=== PATIENT | female | born 1930 | race Caucasian/White ===

== ENCOUNTER 2020-04-15 15:54 | Inpatient (IN) ==
[2020-04-15] MEDS ORDERED: D5% in Water 1,000 ML IVC PRN (17:52)
[2020-04-15] MEDS ORDERED: *HR* Dextrose 50 % in Water (Vial) 50 ML VIAL IVP PRN (17:52)
[2020-04-15] MEDS ORDERED: Naloxone 0.4 MG/ML INJ IVP PRN (17:52)
[2020-04-15] MEDS ORDERED: Dextrose Gel 15 GM/37.5 ML TUBE PO PRN ×2 (17:52)
[2020-04-15] MEDS ORDERED: Perflutren Lipid Microsphere 1.3 ML in 0.9 % Sodium Chloride 8.7 ML IVP PRN (17:55)
[2020-04-15] MEDS ORDERED: Nitroglycerin 0.4 MG TAB.SUBL SL PRN (17:56)
[2020-04-15] MEDS ORDERED: cloNIDine HCL 0.1 MG TABLET PO ONE (18:07)
[2020-04-15] MEDS ORDERED: Furosemide 40 MG/4 ML VIAL IVP ONE (18:10)
[2020-04-15] MEDS ORDERED: cloNIDine HCL 0.1 MG TABLET ONE (18:21)
[2020-04-15] MEDS: *HR* Heparin 5,000 UNIT/ML VIAL SQ SCH (18:50)
[2020-04-16] MEDS: *HR* OxyCODONE/APAP 5/325 TABLET PO SCH ×4 (00:38→20:47)
[2020-04-16] MEDS ORDERED: GI Cocktail 40 ML EACH PO ONE ×2 (03:36→16:42)
[2020-04-16] MEDS ORDERED: *HR* LORazepam 1 MG TABLET PO ONE (03:36)
[2020-04-16 04:22] LABS: Basophils # 0.1 K/mcL (0.0-0.2); Basophils % 0.8 %; Eosinophils # 0.1 K/mcL (0.0-0.6); Eosinophils % 0.9 %; Hematocrit 35.2 % (35.3-44.9); Hemoglobin 11.3 g/dL (11.5-15.4); Immature Granulocytes % 0.3 % (0-4); Lymphocytes # 1.8 K/mcL (0.6-4.6); Lymphocytes % 19.3 %; Mean Corpuscular HGB Conc 32.1 g/dL (31.6-35.5); Mean Corpuscular Hemoglobin 29.9 pg (28.0-33.3); Mean Corpuscular Volume 93.1 fL (83.0-100.0); Mean Platelet Volume 9.7 fL (9.4-12.4); Monocytes # 0.8 K/mcL (0.0-1.3); Monocytes % 8.3 %; Neutrophils # 6.5 K/mcL (1.6-8.9); Platelet Count 371 K/mcL (140-400); Red Blood Count 3.78 M/mcL (3.82-4.97); Red Cell Distribution Width 15.6 % (11.5-14.5); Segmented Neutrophils % 70.4 %; White Blood Count 9.2 K/mcL (4.3-11.1)
[2020-04-16 04:33] LABS: Calcium 9.6 mg/dL (8.6-10.3); Magnesium 1.8 mg/dL (1.6-2.6); Potassium 3.6 mEq/L (3.5-5.1)
[2020-04-16] MEDS: *HR* Heparin 5,000 UNIT/ML VIAL SQ SCH ×2 (05:11→16:28)
[2020-04-16] MEDS: Insulin LISPRO 300 UNITS/3 ML VIAL SUBQ SCH ×3 (07:13→16:25)
[2020-04-16 07:59] LABS: Hepatitis B Surface Antibody < 3.10 mIU/mL
[2020-04-16 08:10] LABS: Hepatitis B Surface Antigen Nonreactive (Nonreactive)
[2020-04-16] MEDS: Isosorbide MONOnitrate (24 HR) 30 MG TAB.ER.24H PO SCH (14:28)
[2020-04-16] MEDS: amLODIPine 5 MG TABLET PO SCH (14:28)
[2020-04-16] MEDS: hydrALAZINE 25 MG TABLET PO SCH (16:27)
[2020-04-16] MEDS: Aspirin 81 MG TAB.CHEW PO SCH (17:23)
[2020-04-16] MEDS: Ondansetron 4 MG/2 ML VIAL IVP PRN (20:46)
[2020-04-16] MEDS: carvediloL 6.25 MG TABLET PO SCH (20:47)
[2020-04-16] MEDS: traZODone 50 MG TABLET PO PRN (20:47)
[2020-04-16] MEDS: cloNIDine HCL 0.1 MG TABLET PO SCH (20:47)
[2020-04-17] MEDS: hydrALAZINE 25 MG TABLET PO SCH ×3 (00:23→15:33)
[2020-04-17 01:04] LABS: Bilirubin,Urine Negative (Negative); Blood,Urine Negative (Negative); Clarity,Urine Clear (Clear); Color,Urine Yellow (Yellow); Glucose,Urine (UA) Normal (Normal); Ketones,Urine Negative (Negative); Leukocyte Esterase,Urine Negative (Negative); Mucus,Urine Few per lpf (None-Few); Nitrite,Urine Negative (Negative); Protein,Urine 200 mg/dL (Neg-Trace); RBC,Urine 0-3 per hpf (0-3); Specific Gravity,Urine 1.018 (1.010-1.025); Urobilinogen,Urine Normal (Normal)
[2020-04-17] MEDS: *HR* Heparin 5,000 UNIT/ML VIAL SQ SCH ×2 (07:03→17:29)
[2020-04-17 07:49] LABS: Calcium 8.7 mg/dL (8.6-10.3); Potassium 4.1 mEq/L (3.5-5.1)
[2020-04-17] MEDS ORDERED: 0.9 % Sodium Chloride 250 ML IVC PRN (08:03)
[2020-04-17] MEDS ORDERED: *HR* Heparin 10,000 UNIT/10 ML VIAL IV PRN ×2 (08:03)
[2020-04-17] MEDS ORDERED: 0.9 % Sodium Chloride 1,000 ML PRIME SCH (08:15)
[2020-04-17] MEDS: cloNIDine HCL 0.1 MG TABLET PO SCH ×2 (08:19→21:15)
[2020-04-17] MEDS: carvediloL 6.25 MG TABLET PO SCH ×2 (08:19→17:30)
[2020-04-17] MEDS: Insulin LISPRO 300 UNITS/3 ML VIAL SUBQ SCH ×3 (08:19→17:11)
[2020-04-17] MEDS: amLODIPine 5 MG TABLET PO SCH (08:19)
[2020-04-17] MEDS: Isosorbide MONOnitrate (24 HR) 30 MG TAB.ER.24H PO SCH (08:20)
[2020-04-17] MEDS: *HR* OxyCODONE/APAP 5/325 TABLET PO SCH ×3 (08:20→21:15)
[2020-04-17] MEDS: Aspirin 81 MG TAB.CHEW PO SCH (08:24)
[2020-04-17 14:58] LABS: Adenovirus Not Detected (Not Detect); Bordetella Pertussis Not Detected (Not Detect); Chlamydophila pneumoniae Not Detected (Not Detect); Coronavirus 229E Not Detected (Not Detect); Coronavirus HKU1 Not Detected (Not Detect); Coronavirus NL63 Not Detected (Not Detect); Coronavirus OC43 Not Detected (Not Detect); Human Metapneumovirus Not Detected (Not Detect); Human Rhinovirus/Enterovirus Not Detected (Not Detect); Influenza A Subtype 2009 H1 Not Detected (Not Detect); Influenza B Not Detected (Not Detect); Mycoplasma pneumoniae Not Detected (Not Detect); Parainfluenza Virus 1 Not Detected (Not Detect); Parainfluenza Virus 2 Not Detected (Not Detect); Parainfluenza Virus 3 Not Detected (Not Detect); Parainfluenza Virus 4 Not Detected (Not Detect); Respiratory Syncytial Virus Not Detected (Not Detect); SARS-CoV-2 Not Detected (Not Detect)
[2020-04-18] MEDS: hydrALAZINE 25 MG TABLET PO SCH ×4 (01:41→17:55)
[2020-04-18 05:17] LABS: Basophils # 0.1 K/mcL (0.0-0.2); Basophils % 1.1 %; Eosinophils # 0.2 K/mcL (0.0-0.6); Eosinophils % 4.2 %; Hematocrit 30.8 % (35.3-44.9); Immature Granulocytes % 0.4 % (0-4); Lymphocytes # 1.7 K/mcL (0.6-4.6); Lymphocytes % 31.6 %; Mean Corpuscular HGB Conc 31.5 g/dL (31.6-35.5); Mean Corpuscular Hemoglobin 30.6 pg (28.0-33.3); Mean Corpuscular Volume 97.2 fL (83.0-100.0); Mean Platelet Volume 9.7 fL (9.4-12.4); Monocytes # 0.7 K/mcL (0.0-1.3); Monocytes % 13.4 %; Neutrophils # 2.7 K/mcL (1.6-8.9); Platelet Count 246 K/mcL (140-400); Red Blood Count 3.17 M/mcL (3.82-4.97); Red Cell Distribution Width 15.9 % (11.5-14.5); Segmented Neutrophils % 49.3 %; White Blood Count 5.5 K/mcL (4.3-11.1)
[2020-04-18 05:50] LABS: Calcium 8.7 mg/dL (8.6-10.3); Potassium 4.1 mEq/L (3.5-5.1)
[2020-04-18 06:00] LABS: Hemoglobin 9.7 g/dL (11.5-15.4)
[2020-04-18] MEDS: *HR* Heparin 5,000 UNIT/ML VIAL SQ SCH (06:07)
[2020-04-18] MEDS: Insulin LISPRO 300 UNITS/3 ML VIAL SUBQ SCH ×3 (07:07→17:22)
[2020-04-18] MEDS: amLODIPine 5 MG TABLET PO SCH (08:13)
[2020-04-18] MEDS: Aspirin 81 MG TAB.CHEW PO SCH (08:13)
[2020-04-18] MEDS: Isosorbide MONOnitrate (24 HR) 30 MG TAB.ER.24H PO SCH (08:13)
[2020-04-18] MEDS: cloNIDine HCL 0.1 MG TABLET PO SCH ×2 (08:14→21:17)
[2020-04-18] MEDS: *HR* OxyCODONE/APAP 5/325 TABLET PO SCH ×3 (08:15→21:17)
[2020-04-18] MEDS: carvediloL 6.25 MG TABLET PO SCH ×2 (08:15→18:02)
[2020-04-18] MEDS: traZODone 50 MG TABLET PO PRN (21:17)
[2020-04-19] MEDS: hydrALAZINE 25 MG TABLET PO SCH ×3 (01:27→15:25)
[2020-04-19] MEDS: hydrOXYzine pamoate 25 MG CAPSULE PO PRN (01:28)
[2020-04-19 02:13] LABS: Basophils # 0.1 K/mcL (0.0-0.2); Eosinophils # 0.3 K/mcL (0.0-0.6); Hematocrit 34.5 % (35.3-44.9); Hemoglobin 10.8 g/dL (11.5-15.4); Immature Granulocytes % 0.1 % (0-4); Lymphocytes # 1.8 K/mcL (0.6-4.6); Lymphocytes % 25.3 %; Mean Corpuscular HGB Conc 31.3 g/dL (31.6-35.5); Mean Corpuscular Hemoglobin 30.2 pg (28.0-33.3); Mean Corpuscular Volume 96.4 fL (83.0-100.0); Mean Platelet Volume 9.5 fL (9.4-12.4); Monocytes # 0.8 K/mcL (0.0-1.3); Platelet Count 290 K/mcL (140-400); Red Blood Count 3.58 M/mcL (3.82-4.97); Red Cell Distribution Width 15.6 % (11.5-14.5); Segmented Neutrophils % 57.6 %; White Blood Count 6.9 K/mcL (4.3-11.1)
[2020-04-19 02:28] LABS: Calcium 9.1 mg/dL (8.6-10.3); Potassium 4.1 mEq/L (3.5-5.1)
[2020-04-19] MEDS: Insulin LISPRO 300 UNITS/3 ML VIAL SUBQ SCH ×3 (07:30→17:34)
[2020-04-19] MEDS: Aspirin 81 MG TAB.CHEW PO SCH (07:57)
[2020-04-19] MEDS: cloNIDine HCL 0.1 MG TABLET PO SCH ×2 (07:57→21:27)
[2020-04-19] MEDS: amLODIPine 5 MG TABLET PO SCH (07:57)
[2020-04-19] MEDS: carvediloL 6.25 MG TABLET PO SCH ×2 (07:57→15:26)
[2020-04-19] MEDS: Isosorbide MONOnitrate (24 HR) 30 MG TAB.ER.24H PO SCH (07:58)
[2020-04-19] MEDS: *HR* OxyCODONE/APAP 5/325 TABLET PO SCH ×3 (07:58→21:27)
[2020-04-19] MEDS ORDERED: *HR* Heparin 10,000 UNIT/10 ML VIAL IV PRN (08:02)
[2020-04-19] MEDS ORDERED: 0.9 % Sodium Chloride 250 ML IVC PRN (08:02)
[2020-04-19] MEDS ORDERED: *HR* Metoprolol 5 MG/5 ML VIAL IVP ONE (09:20)
[2020-04-19] MEDS ORDERED: *HR* Propofol 200 MG/20 ML VIAL IVP ONE (09:21)
[2020-04-19] MEDS ORDERED: *HR* PHENYLEPHRINE 1,000 MCG/10 ML SYRINGE IVP ONE (10:33)
[2020-04-19] MEDS: Pantoprazole 40 MG VIAL IVP SCH (12:11)
[2020-04-19] MEDS: Acetaminophen 325 MG TABLET PO PRN (19:32)
[2020-04-19] MEDS ORDERED: Famotidine 20 MG TABLET PO SCH (21:00)
[2020-04-19] MEDS: traZODone 50 MG TABLET PO PRN (21:27)
[2020-04-20] MEDS: hydrALAZINE 25 MG TABLET PO SCH ×3 (00:10→15:21)
[2020-04-20] MEDS: Acetaminophen 325 MG TABLET PO PRN ×2 (01:54→12:33)
[2020-04-20] MEDS: Ondansetron 4 MG/2 ML VIAL IVP PRN (04:14)
[2020-04-20] MEDS: Pantoprazole 40 MG VIAL IVP SCH (08:14)
[2020-04-20] MEDS: Aspirin 81 MG TAB.CHEW PO SCH (08:14)
[2020-04-20] MEDS: Isosorbide MONOnitrate (24 HR) 30 MG TAB.ER.24H PO SCH (08:14)
[2020-04-20] MEDS: polyethylene glycoL 3350 17 GM POWD.PACK PO PRN (08:14)
[2020-04-20] MEDS: carvediloL 6.25 MG TABLET PO SCH ×2 (08:14→17:37)
[2020-04-20] MEDS: cloNIDine HCL 0.1 MG TABLET PO SCH ×2 (08:15→20:59)
[2020-04-20] MEDS: *HR* OxyCODONE/APAP 5/325 TABLET PO SCH ×3 (08:15→20:59)
[2020-04-20] MEDS: Insulin LISPRO 300 UNITS/3 ML VIAL SUBQ SCH ×3 (08:15→16:07)
[2020-04-20] MEDS: amLODIPine 5 MG TABLET PO SCH (08:22)
[2020-04-20 08:25] LABS: Basophils # 0.1 K/mcL (0.0-0.2); Basophils % 0.9 %; Eosinophils # 0.1 K/mcL (0.0-0.6); Eosinophils % 2.1 %; Hematocrit 30.9 % (35.3-44.9); Hemoglobin 9.9 g/dL (11.5-15.4); Immature Granulocytes % 0.3 % (0-4); Lymphocytes # 1.4 K/mcL (0.6-4.6); Lymphocytes % 21.6 %; Mean Corpuscular Hemoglobin 30.7 pg (28.0-33.3); Mean Platelet Volume 9.9 fL (9.4-12.4); Monocytes # 0.7 K/mcL (0.0-1.3); Monocytes % 11.7 %; Platelet Count 233 K/mcL (140-400); Red Blood Count 3.22 M/mcL (3.82-4.97); Segmented Neutrophils % 63.4 %; White Blood Count 6.3 K/mcL (4.3-11.1)
[2020-04-20 08:42] LABS: Calcium 8.8 mg/dL (8.6-10.3); Potassium 4.1 mEq/L (3.5-5.1)
[2020-04-20] MEDS ORDERED: Bisacodyl 10 MG RECTAL SUPPOSITORY RC ONE (14:07)
[2020-04-20] MEDS ORDERED: GI Cocktail 40 ML EACH PO ONE (15:33)
[2020-04-21] MEDS: hydrALAZINE 25 MG TABLET PO SCH ×4 (00:21→23:36)
[2020-04-21 04:03] LABS: Basophils % 0.3 %; Eosinophils # 0.1 K/mcL (0.0-0.6); Eosinophils % 0.8 %; Hematocrit 31.3 % (35.3-44.9); Hemoglobin 10.1 g/dL (11.5-15.4); Immature Granulocytes % 0.5 % (0-4); Lymphocytes # 0.7 K/mcL (0.6-4.6); Lymphocytes % 5.7 %; Mean Corpuscular HGB Conc 32.3 g/dL (31.6-35.5); Mean Corpuscular Hemoglobin 31.1 pg (28.0-33.3); Mean Corpuscular Volume 96.3 fL (83.0-100.0); Mean Platelet Volume 9.7 fL (9.4-12.4); Monocytes # 0.9 K/mcL (0.0-1.3); Monocytes % 7.6 %; Neutrophils # 10.4 K/mcL (1.6-8.9); Platelet Count 223 K/mcL (140-400); Red Blood Count 3.25 M/mcL (3.82-4.97); Segmented Neutrophils % 85.1 %
[2020-04-21 04:04] LABS: White Blood Count 12.2 K/mcL (4.3-11.1)
[2020-04-21 04:21] LABS: Calcium 9.2 mg/dL (8.6-10.3); Potassium 4.2 mEq/L (3.5-5.1)
[2020-04-21] MEDS: polyethylene glycoL 3350 17 GM POWD.PACK PO PRN (05:35)
[2020-04-21] MEDS: Insulin LISPRO 300 UNITS/3 ML VIAL SUBQ SCH ×3 (07:20→16:53)
[2020-04-21] MEDS: Pantoprazole 40 MG VIAL IVP SCH (07:47)
[2020-04-21] MEDS: Isosorbide MONOnitrate (24 HR) 30 MG TAB.ER.24H PO SCH (07:48)
[2020-04-21] MEDS: amLODIPine 5 MG TABLET PO SCH (07:48)
[2020-04-21] MEDS: cloNIDine HCL 0.1 MG TABLET PO SCH ×2 (07:48→19:45)
[2020-04-21] MEDS: carvediloL 6.25 MG TABLET PO SCH ×2 (07:48→18:11)
[2020-04-21] MEDS: Aspirin 81 MG TAB.CHEW PO SCH (07:48)
[2020-04-21] MEDS: *HR* OxyCODONE/APAP 5/325 TABLET PO SCH ×3 (07:49→19:45)
[2020-04-21] MEDS ORDERED: Bisacodyl 10 MG RECTAL SUPPOSITORY RC PRN (11:01)
[2020-04-21] MEDS: Ondansetron 4 MG/2 ML VIAL IVP PRN (11:05)
[2020-04-21] MEDS ORDERED: Sennosides 8.6 MG TABLET PO SCH (11:15)
[2020-04-21] MEDS: Acetaminophen 325 MG TABLET PO PRN (18:11)
[2020-04-21] MEDS: traZODone 50 MG TABLET PO PRN (19:45)
[2020-04-22 02:40] LABS: Basophils # 0.1 K/mcL (0.0-0.2); Basophils % 0.7 %; Eosinophils # 0.4 K/mcL (0.0-0.6); Eosinophils % 4.7 %; Hematocrit 28.5 % (35.3-44.9); Hemoglobin 9.3 g/dL (11.5-15.4); Immature Granulocytes % 0.4 % (0-4); Lymphocytes # 1.4 K/mcL (0.6-4.6); Lymphocytes % 18.7 %; Mean Corpuscular HGB Conc 32.6 g/dL (31.6-35.5); Mean Corpuscular Hemoglobin 30.7 pg (28.0-33.3); Mean Corpuscular Volume 94.1 fL (83.0-100.0); Mean Platelet Volume 9.8 fL (9.4-12.4); Monocytes # 0.9 K/mcL (0.0-1.3); Monocytes % 12.2 %; Neutrophils # 4.7 K/mcL (1.6-8.9); Platelet Count 200 K/mcL (140-400); Red Blood Count 3.03 M/mcL (3.82-4.97); Red Cell Distribution Width 15.8 % (11.5-14.5); Segmented Neutrophils % 63.3 %; White Blood Count 7.5 K/mcL (4.3-11.1)
[2020-04-22 02:58] LABS: Calcium 8.6 mg/dL (8.6-10.3); Potassium 4.2 mEq/L (3.5-5.1)
[2020-04-22] MEDS: Insulin LISPRO 300 UNITS/3 ML VIAL SUBQ SCH ×3 (08:14→16:55)
[2020-04-22] MEDS ORDERED: Regadenoson 0.4 MG/5 ML SYRINGE IVP ONE (08:38)
[2020-04-22] MEDS ORDERED: 0.9 % Sodium Chloride 250 ML IVC PRN (09:28)
[2020-04-22] MEDS ORDERED: *HR* Heparin 10,000 UNIT/10 ML VIAL IV PRN (09:35)
[2020-04-22] MEDS ORDERED: 0.9 % Sodium Chloride 1,000 ML PRIME SCH (09:45)
[2020-04-22] MEDS: carvediloL 6.25 MG TABLET PO SCH ×2 (10:09→16:38)
[2020-04-22] MEDS: hydrALAZINE 25 MG TABLET PO SCH ×3 (10:09→23:32)
[2020-04-22] MEDS: cloNIDine HCL 0.1 MG TABLET PO SCH ×2 (10:10→20:03)
[2020-04-22] MEDS: amLODIPine 5 MG TABLET PO SCH (10:10)
[2020-04-22] MEDS: *HR* OxyCODONE/APAP 5/325 TABLET PO SCH ×3 (10:16→20:03)
[2020-04-22] MEDS: Isosorbide MONOnitrate (24 HR) 30 MG TAB.ER.24H PO SCH (10:17)
[2020-04-22] MEDS: Pantoprazole 40 MG VIAL IVP SCH (10:17)
[2020-04-22] MEDS: Aspirin 81 MG TAB.CHEW PO SCH (10:17)
[2020-04-22] MEDS ORDERED: Famotidine 20 MG TABLET PO SCH (21:00)
[2020-04-22] MEDS: traZODone 50 MG TABLET PO PRN (22:47)
[2020-04-23] MEDS: hydrOXYzine pamoate 25 MG CAPSULE PO PRN (00:22)
[2020-04-23] MEDS: Acetaminophen 325 MG TABLET PO PRN (03:08)
[2020-04-23] MEDS ORDERED: Melatonin 3 MG TABLET PO SCH (03:15)
[2020-04-23] MEDS: *HR* OxyCODONE/APAP 5/325 TABLET PO SCH ×2 (06:01→15:06)
[2020-04-23 06:52] LABS: Basophils % 0.5 %; Eosinophils # 0.2 K/mcL (0.0-0.6); Eosinophils % 2.3 %; Hematocrit 31.3 % (35.3-44.9); Hemoglobin 10.2 g/dL (11.5-15.4); Immature Granulocytes % 0.5 % (0-4); Lymphocytes # 0.8 K/mcL (0.6-4.6); Lymphocytes % 10.3 %; Mean Corpuscular HGB Conc 32.6 g/dL (31.6-35.5); Mean Corpuscular Hemoglobin 30.8 pg (28.0-33.3); Mean Corpuscular Volume 94.6 fL (83.0-100.0); Mean Platelet Volume 9.9 fL (9.4-12.4); Monocytes # 0.9 K/mcL (0.0-1.3); Monocytes % 11.9 %; Neutrophils # 5.9 K/mcL (1.6-8.9); Platelet Count 229 K/mcL (140-400); Red Blood Count 3.31 M/mcL (3.82-4.97); Segmented Neutrophils % 74.5 %; White Blood Count 7.9 K/mcL (4.3-11.1)
[2020-04-23 07:18] LABS: Potassium 3.8 mEq/L (3.5-5.1)
[2020-04-23] MEDS: Insulin LISPRO 300 UNITS/3 ML VIAL SUBQ SCH ×2 (08:27→12:08)
[2020-04-23] MEDS: cloNIDine HCL 0.1 MG TABLET PO SCH (08:35)
[2020-04-23] MEDS: carvediloL 6.25 MG TABLET PO SCH (08:35)
[2020-04-23] MEDS: Aspirin 81 MG TAB.CHEW PO SCH (08:35)
[2020-04-23] MEDS: hydrALAZINE 25 MG TABLET PO SCH (08:36)
[2020-04-23] MEDS: Isosorbide MONOnitrate (24 HR) 30 MG TAB.ER.24H PO SCH (08:36)
[2020-04-23] MEDS: amLODIPine 5 MG TABLET PO SCH (08:36)
[2020-04-23] MEDS: Pantoprazole 40 MG VIAL IVP SCH (08:38)
[2020-04-23 11:46] VITALS: BP 108/64
[2020-04-23] MEDS ORDERED: Acetaminophen IV 500 MG/50 ML BAG IVPB ONE (12:05)
== END 2020-04-23 16:12 | disposition home health service (06) | DRG 291 ==
LOC: 3BNU → SUATTDRO 17:45
PROVIDERS: ADMIT Internal Medicine; ATTEND Internal Medicine
PROC: ENDOEBX (2020-04-19 10:50)

== ENCOUNTER 2020-05-10 19:56 | Inpatient (IN) ==
[2020-05-10] MEDS ORDERED: Naloxone 0.4 MG/ML INJ IVP PRN (23:14)
[2020-05-10] MEDS ORDERED: Ringers Solution, Lactated 500 ML IVC SCH (23:15)
[2020-05-10] MEDS ORDERED: Isovue-370 500 ML BOTTLE IVP ONE (23:15)
[2020-05-10] MEDS ORDERED: Nitroglycerin 0.4 MG TAB.SUBL SL PRN (23:18)
[2020-05-11] MEDS ORDERED: Morphine Sulfate 2 MG/ML SYRINGE IVP ONE (00:47)
[2020-05-11] MEDS ORDERED: Albuterol 2.5 MG/3 ML NEBULIZER IH PRN (00:54)
[2020-05-11] MEDS ORDERED: *HR* Dextrose 50 % in Water (Vial) 50 ML VIAL IVP PRN (00:57)
[2020-05-11] MEDS ORDERED: Dextrose Gel 15 GM/37.5 ML TUBE PO PRN ×2 (00:57)
[2020-05-11] MEDS ORDERED: D5% in Water 1,000 ML IVC PRN (00:57)
[2020-05-11] MEDS ORDERED: *HR* Heparin 5,000 UNIT/ML VIAL IVP PRN ×2 (01:19)
[2020-05-11] MEDS ORDERED: *HR* Heparin 5,000 UNIT/ML VIAL IVP ONE (01:19)
[2020-05-11 01:50] LABS: Hematocrit 32.4 % (35.3-44.9); Hemoglobin 10.2 g/dL (11.5-15.4); Immature Granulocytes % 0.3 % (0-4); Lymphocytes # 0.3 K/mcL (0.6-4.6); Lymphocytes % 7.8 %; Mean Corpuscular HGB Conc 31.5 g/dL (31.6-35.5); Mean Corpuscular Hemoglobin 29.6 pg (28.0-33.3); Mean Corpuscular Volume 93.9 fL (83.0-100.0); Mean Platelet Volume 9.8 fL (9.4-12.4); Monocytes # 0.1 K/mcL (0.0-1.3); Monocytes % 2.6 %; Neutrophils # 3.1 K/mcL (1.6-8.9); Platelet Count 217 K/mcL (140-400); Red Blood Count 3.45 M/mcL (3.82-4.97); Red Cell Distribution Width 14.8 % (11.5-14.5); Segmented Neutrophils % 89.3 %; White Blood Count 3.5 K/mcL (4.3-11.1)
[2020-05-11 01:58] LABS: Fibrinogen 364 mg/dL (169-393); Prothrombin Time 11.4 Seconds (9.4-12.1)
[2020-05-11 01:59] LABS: Heparin anti-factor XA UFH < 0.04 IU/mL (0.30-0.70)
[2020-05-11 02:02] LABS: D-Dimer 1730 ng/mLFEU (0-500)
[2020-05-11 02:10] LABS: C-Reactive Protein 40 mg/L (Less than 10); Lactate Dehydrogenase 133 Units/L (140-271)
[2020-05-11 02:12] LABS: Albumin 3.4 g/dL (3.5-5.7); Albumin/Globulin Ratio 1.2 (1.1-2.2); Bilirubin,Total 0.5 mg/dL (0.3-1.0); Calcium 8.4 mg/dL (8.6-10.3); Chol/HDL Ratio 3.3 (0-4.9); Globulin 2.8 g/dL (2.4-3.5); Magnesium 1.7 mg/dL (1.6-2.6); Phosphorous 2.1 mg/dL (2.7-4.5); Total Protein 6.2 g/dL (6.4-8.9)
[2020-05-11 02:16] LABS: Troponin I 0.05 ng/mL (< 0.04)
[2020-05-11] MEDS: Heparin 25,000UNIT/250ML 1/2NS 25,000 UNIT/250 ML IV.SOLN IVC SCH (02:17)
[2020-05-11] MEDS: DilTIAZem 50 MG/50 ML IV.SOLN IVC SCH (02:18)
[2020-05-11 02:32] LABS: Ferritin 567 ng/mL (10-120)
[2020-05-11] MEDS: Insulin LISPRO 300 UNITS/3 ML VIAL SUBQ SCH ×3 (05:25→17:31)
[2020-05-11] MEDS ORDERED: levoFLOXacin 750 MG/150 ML 750 MG/150 ML BAG IVPB SCH (08:00)
[2020-05-11] MEDS ORDERED: carvediloL 6.25 MG TABLET PO SCH (08:00)
[2020-05-11] MEDS: Aspirin 81 MG TAB.CHEW PO SCH (08:42)
[2020-05-11] MEDS: Doxycycline 100 MG in 0.9 % Sodium Chloride Mini Bag 100 ML IVPB SCH ×2 (08:43→17:42)
[2020-05-11] MEDS: Dexamethasone Sodium Phos/PF 10 MG/ML VIAL IVP SCH (08:44)
[2020-05-11 08:55] LABS: Hepatitis B Surface Antibody < 3.10 mIU/mL
[2020-05-11] MEDS ORDERED: Furosemide 40 MG/4 ML VIAL IVP SCH ×2 (09:00→21:00)
[2020-05-11 09:06] LABS: Hepatitis B Surface Antigen Nonreactive (Nonreactive)
[2020-05-11] MEDS: Metoprolol XL (24 HR) Succ 25 MG TAB.ER.24H PO SCH ×2 (10:46→20:57)
[2020-05-11] MEDS: *HR* LORazepam 0.5 MG TABLET PO PRN (13:20)
[2020-05-11] MEDS: Benzonatate 100 MG CAPSULE PO PRN (17:42)
[2020-05-11] MEDS: traZODone 50 MG TABLET PO PRN (20:56)
[2020-05-11] MEDS: Insulin DETEMIR 100 UNIT/ML X5UNITS SUBQ SCH (20:57)
[2020-05-11] MEDS: Furosemide 80 MG in 0.9 % Sodium Chloride 50 ML IVPB SCH (20:57)
[2020-05-12 00:33] LABS: Hemoglobin 11.6 g/dL (11.5-15.4); Mean Corpuscular HGB Conc 33.1 g/dL (31.6-35.5); Mean Corpuscular Hemoglobin 30.9 pg (28.0-33.3); Mean Corpuscular Volume 93.1 fL (83.0-100.0); Mean Platelet Volume 9.8 fL (9.4-12.4); Platelet Count 302 K/mcL (140-400); Red Blood Count 3.76 M/mcL (3.82-4.97); Red Cell Distribution Width 14.6 % (11.5-14.5)
[2020-05-12 00:37] LABS: White Blood Count 9.3 K/mcL (4.3-11.1)
[2020-05-12 00:52] LABS: Calcium 9.2 mg/dL (8.6-10.3); Potassium 3.7 mEq/L (3.5-5.1)
[2020-05-12] MEDS ORDERED: *HR* Labetalol 20 MG/4 ML SYRINGE IVP PRN (02:07)
[2020-05-12] MEDS: hydrALAZINE 25 MG TABLET PO SCH ×4 (03:14→23:45)
[2020-05-12] MEDS: *HR* LORazepam 0.5 MG TABLET PO PRN (04:25)
[2020-05-12] MEDS: Doxycycline 100 MG in 0.9 % Sodium Chloride Mini Bag 100 ML IVPB SCH (04:55)
[2020-05-12] MEDS: Insulin LISPRO 300 UNITS/3 ML VIAL SUBQ SCH ×5 (09:27→20:27)
[2020-05-12] MEDS: Cholecalciferol (D-3) 1,000 UNIT (25MCG) TABLET PO SCH (09:31)
[2020-05-12] MEDS: Aspirin 81 MG TAB.CHEW PO SCH (09:31)
[2020-05-12] MEDS: Metoprolol XL (24 HR) Succ 25 MG TAB.ER.24H PO SCH ×2 (09:32→20:14)
[2020-05-12] MEDS: Isosorbide MONOnitrate (24 HR) 60 MG TAB.ER.24H PO SCH (09:32)
[2020-05-12] MEDS: Ondansetron 4 MG/2 ML VIAL IVP PRN (09:32)
[2020-05-12] MEDS: Furosemide 80 MG in 0.9 % Sodium Chloride 50 ML IVPB SCH ×2 (09:33→20:14)
[2020-05-12] MEDS: Dexamethasone Sodium Phos/PF 10 MG/ML VIAL IVP SCH (09:34)
[2020-05-12] MEDS ORDERED: Warfarin perPT PO PRN (18:00)
[2020-05-12] MEDS ORDERED: *HR* Warfarin 2 MG TABLET PO ONE (18:00)
[2020-05-12] MEDS: Heparin 25,000UNIT/250ML 1/2NS 25,000 UNIT/250 ML IV.SOLN IVC SCH (18:48)
[2020-05-12] MEDS: Benzonatate 100 MG CAPSULE PO PRN (20:14)
[2020-05-12] MEDS: Insulin DETEMIR 100 UNIT/ML X5UNITS SUBQ SCH (21:22)
[2020-05-13] MEDS: Ondansetron 4 MG/2 ML VIAL IVP PRN (02:13)
[2020-05-13] MEDS: *HR* LORazepam 0.5 MG TABLET PO PRN ×2 (03:21→21:45)
[2020-05-13 05:19] LABS: Basophils % 0.1 %; Hematocrit 32.5 % (35.3-44.9); Hemoglobin 10.5 g/dL (11.5-15.4); Immature Granulocytes % 0.4 % (0-4); Lymphocytes # 0.7 K/mcL (0.6-4.6); Lymphocytes % 6.2 %; Mean Corpuscular HGB Conc 32.3 g/dL (31.6-35.5); Mean Corpuscular Hemoglobin 30.8 pg (28.0-33.3); Mean Corpuscular Volume 95.3 fL (83.0-100.0); Mean Platelet Volume 9.5 fL (9.4-12.4); Monocytes % 8.1 %; Neutrophils # 9.9 K/mcL (1.6-8.9); Platelet Count 302 K/mcL (140-400); Red Blood Count 3.41 M/mcL (3.82-4.97); Red Cell Distribution Width 15.3 % (11.5-14.5); Segmented Neutrophils % 85.2 %; White Blood Count 11.7 K/mcL (4.3-11.1)
[2020-05-13 05:35] LABS: Prothrombin Time 12.1 Seconds (9.4-12.1)
[2020-05-13 05:40] LABS: Calcium 8.9 mg/dL (8.6-10.3); Potassium 4.6 mEq/L (3.5-5.1)
[2020-05-13] MEDS: Insulin LISPRO 300 UNITS/3 ML VIAL SUBQ SCH ×4 (07:30→21:09)
[2020-05-13] MEDS ORDERED: levoFLOXacin 500 MG/100 ML 500 MG/100 ML BAG IVPB SCH (08:00)
[2020-05-13] MEDS ORDERED: *HR* Heparin 10,000 UNIT/10 ML VIAL IV PRN (08:13)
[2020-05-13] MEDS ORDERED: 0.9 % Sodium Chloride 250 ML IVC PRN (08:13)
[2020-05-13] MEDS ORDERED: 0.9 % Sodium Chloride 1,000 ML PRIME SCH (08:15)
[2020-05-13] MEDS: Cholecalciferol (D-3) 1,000 UNIT (25MCG) TABLET PO SCH (08:34)
[2020-05-13] MEDS: Aspirin 81 MG TAB.CHEW PO SCH (08:34)
[2020-05-13] MEDS: Isosorbide MONOnitrate (24 HR) 60 MG TAB.ER.24H PO SCH (08:34)
[2020-05-13] MEDS: Metoprolol XL (24 HR) Succ 25 MG TAB.ER.24H PO SCH ×2 (08:35→20:05)
[2020-05-13] MEDS: Dexamethasone Sodium Phos/PF 10 MG/ML VIAL IVP SCH (08:35)
[2020-05-13] MEDS: hydrALAZINE 25 MG TABLET PO SCH ×2 (08:36→16:48)
[2020-05-13] MEDS: Furosemide 80 MG in 0.9 % Sodium Chloride 50 ML IVPB SCH ×2 (08:37→20:07)
[2020-05-13] MEDS ORDERED: Ondansetron 4 MG/2 ML VIAL IVP PRN (08:44)
[2020-05-13] MEDS ORDERED: *HR* Warfarin 2 MG TABLET PO ONE (18:00)
[2020-05-13] MEDS: Benzonatate 100 MG CAPSULE PO PRN (20:05)
[2020-05-13] MEDS ORDERED: Insulin DETEMIR 100 UNIT/ML X5UNITS SUBQ SCH (21:00)
[2020-05-14] MEDS: hydrALAZINE 25 MG TABLET PO SCH ×4 (00:07→23:31)
[2020-05-14] MEDS: Acetaminophen 325 MG TABLET PO PRN (05:34)
[2020-05-14 05:47] LABS: Hematocrit 31.6 % (35.3-44.9); Mean Corpuscular HGB Conc 31.6 g/dL (31.6-35.5); Mean Corpuscular Volume 94.9 fL (83.0-100.0); Mean Platelet Volume 9.8 fL (9.4-12.4); Platelet Count 264 K/mcL (140-400); Red Blood Count 3.33 M/mcL (3.82-4.97); Red Cell Distribution Width 15.2 % (11.5-14.5)
[2020-05-14 06:02] LABS: INR 1.3; Prothrombin Time 14.4 Seconds (9.4-12.1)
[2020-05-14 06:03] LABS: Heparin anti-factor XA UFH 0.21 IU/mL (0.30-0.70)
[2020-05-14 06:06] LABS: Calcium 8.7 mg/dL (8.6-10.3)
[2020-05-14] MEDS: Insulin LISPRO 300 UNITS/3 ML VIAL SUBQ SCH ×4 (08:00→19:57)
[2020-05-14] MEDS: Cholecalciferol (D-3) 1,000 UNIT (25MCG) TABLET PO SCH (09:44)
[2020-05-14] MEDS: Aspirin 81 MG TAB.CHEW PO SCH (09:45)
[2020-05-14] MEDS: Metoprolol XL (24 HR) Succ 25 MG TAB.ER.24H PO SCH ×2 (09:45→19:57)
[2020-05-14] MEDS: Dexamethasone Sodium Phos/PF 10 MG/ML VIAL IVP SCH (09:45)
[2020-05-14] MEDS: Isosorbide MONOnitrate (24 HR) 60 MG TAB.ER.24H PO SCH (09:45)
[2020-05-14] MEDS: Furosemide 80 MG in 0.9 % Sodium Chloride 50 ML IVPB SCH ×2 (09:52→19:57)
[2020-05-14] MEDS: Heparin 25,000UNIT/250ML 1/2NS 25,000 UNIT/250 ML IV.SOLN IVC SCH ×2 (10:26→11:34)
[2020-05-14] MEDS: amLODIPine 5 MG TABLET PO SCH (14:01)
[2020-05-14] MEDS ORDERED: *HR* Warfarin 2 MG TABLET PO ONE (18:00)
[2020-05-14] MEDS: *HR* LORazepam 0.5 MG TABLET PO PRN (21:02)
[2020-05-14] MEDS: DilTIAZem 50 MG/50 ML IV.SOLN IVC SCH (22:04)
[2020-05-15 03:29] LABS: Hematocrit 31.5 % (35.3-44.9); Hemoglobin 10.2 g/dL (11.5-15.4); Mean Corpuscular HGB Conc 32.4 g/dL (31.6-35.5); Mean Corpuscular Hemoglobin 30.5 pg (28.0-33.3); Mean Corpuscular Volume 94.3 fL (83.0-100.0); Mean Platelet Volume 9.7 fL (9.4-12.4); Platelet Count 274 K/mcL (140-400); Red Blood Count 3.34 M/mcL (3.82-4.97); Red Cell Distribution Width 15.3 % (11.5-14.5); White Blood Count 9.7 K/mcL (4.3-11.1)
[2020-05-15 03:35] LABS: INR 1.6; Prothrombin Time 17.7 Seconds (9.4-12.1)
[2020-05-15 03:49] LABS: Calcium 8.9 mg/dL (8.6-10.3)
[2020-05-15] MEDS ORDERED: *HR* Heparin 10,000 UNIT/10 ML VIAL IV PRN (07:25)
[2020-05-15] MEDS ORDERED: 0.9 % Sodium Chloride 250 ML IVC PRN (07:25)
[2020-05-15] MEDS ORDERED: 0.9 % Sodium Chloride 1,000 ML PRIME SCH (07:30)
[2020-05-15] MEDS: Dexamethasone Sodium Phos/PF 10 MG/ML VIAL IVP SCH (09:09)
[2020-05-15] MEDS: hydrALAZINE 25 MG TABLET PO SCH ×2 (09:10→17:03)
[2020-05-15] MEDS: Aspirin 81 MG TAB.CHEW PO SCH (09:10)
[2020-05-15] MEDS: Cholecalciferol (D-3) 1,000 UNIT (25MCG) TABLET PO SCH (09:10)
[2020-05-15] MEDS: Metoprolol XL (24 HR) Succ 25 MG TAB.ER.24H PO SCH ×2 (09:11→19:44)
[2020-05-15] MEDS: Isosorbide MONOnitrate (24 HR) 60 MG TAB.ER.24H PO SCH (09:11)
[2020-05-15] MEDS: amLODIPine 5 MG TABLET PO SCH (09:11)
[2020-05-15] MEDS ORDERED: Ipratropium 1 PUFF INHALER IH ONE (10:44)
[2020-05-15] MEDS: *HR* LORazepam 0.5 MG TABLET PO PRN ×2 (10:48→20:06)
[2020-05-15] MEDS: Ipratropium 1 PUFF INHALER IH SCH ×4 (10:50→23:38)
[2020-05-15] MEDS: Insulin LISPRO 300 UNITS/3 ML VIAL SUBQ SCH ×4 (12:42→21:12)
[2020-05-15] MEDS: Furosemide 80 MG in 0.9 % Sodium Chloride 50 ML IVPB SCH ×2 (14:21→19:44)
[2020-05-15] MEDS: Calcium Acetate 667 MG CAPSULE PO SCH (17:03)
[2020-05-15] MEDS ORDERED: *HR* Warfarin 2 MG TABLET PO ONE (18:00)
[2020-05-16] MEDS: hydrALAZINE 25 MG TABLET PO SCH ×3 (00:28→17:33)
[2020-05-16] MEDS: Heparin 25,000UNIT/250ML 1/2NS 25,000 UNIT/250 ML IV.SOLN IVC SCH (00:58)
[2020-05-16] MEDS: Ipratropium 1 PUFF INHALER IH SCH ×6 (03:41→22:44)
[2020-05-16 05:36] LABS: Basophils % 0.1 %; Eosinophils % 0.3 %; Hematocrit 32.9 % (35.3-44.9); Hemoglobin 10.8 g/dL (11.5-15.4); Immature Granulocytes % 0.9 % (0-4); Lymphocytes # 0.7 K/mcL (0.6-4.6); Mean Corpuscular HGB Conc 32.8 g/dL (31.6-35.5); Mean Corpuscular Hemoglobin 30.3 pg (28.0-33.3); Mean Corpuscular Volume 92.2 fL (83.0-100.0); Mean Platelet Volume 10.3 fL (9.4-12.4); Monocytes % 12.1 %; Neutrophils # 6.2 K/mcL (1.6-8.9); Platelet Count 292 K/mcL (140-400); Red Blood Count 3.57 M/mcL (3.82-4.97); Red Cell Distribution Width 15.4 % (11.5-14.5); Segmented Neutrophils % 77.6 %
[2020-05-16 05:38] LABS: INR 2.1; Prothrombin Time 23.6 Seconds (9.4-12.1)
[2020-05-16 05:54] LABS: Calcium 9.2 mg/dL (8.6-10.3); Potassium 3.9 mEq/L (3.5-5.1)
[2020-05-16] MEDS: *HR* LORazepam 0.5 MG TABLET PO PRN ×2 (06:10→19:42)
[2020-05-16] MEDS: Insulin LISPRO 300 UNITS/3 ML VIAL SUBQ SCH ×4 (07:21→19:38)
[2020-05-16] MEDS: Cholecalciferol (D-3) 1,000 UNIT (25MCG) TABLET PO SCH (08:20)
[2020-05-16] MEDS: Metoprolol XL (24 HR) Succ 25 MG TAB.ER.24H PO SCH ×2 (08:21→19:43)
[2020-05-16] MEDS: Aspirin 81 MG TAB.CHEW PO SCH (08:21)
[2020-05-16] MEDS: Calcium Acetate 667 MG CAPSULE PO SCH ×3 (08:21→17:33)
[2020-05-16] MEDS: amLODIPine 5 MG TABLET PO SCH (08:22)
[2020-05-16] MEDS: Dexamethasone Sodium Phos/PF 10 MG/ML VIAL IVP SCH (08:22)
[2020-05-16] MEDS: Isosorbide MONOnitrate (24 HR) 60 MG TAB.ER.24H PO SCH (08:22)
[2020-05-16] MEDS: Furosemide 80 MG in 0.9 % Sodium Chloride 50 ML IVPB SCH ×2 (08:22→19:43)
[2020-05-16] MEDS ORDERED: *HR* LORazepam 0.5 MG TABLET PO STA (10:43)
[2020-05-16] MEDS ORDERED: 0.9 % Sodium Chloride 250 ML IVC PRN (15:40)
[2020-05-16] MEDS ORDERED: *HR* Warfarin 1 MG TABLET PO ONE (18:00)
[2020-05-17] MEDS ORDERED: *HR* Heparin 10,000 UNIT/10 ML VIAL IV PRN (00:01)
[2020-05-17] MEDS: hydrALAZINE 25 MG TABLET PO SCH ×3 (00:03→15:50)
[2020-05-17] MEDS: traZODone 50 MG TABLET PO PRN (00:55)
[2020-05-17] MEDS ORDERED: *HR* LORazepam 2 MG/ML VIAL IVP ONE (02:08)
[2020-05-17] MEDS: Ipratropium 1 PUFF INHALER IH SCH ×6 (03:54→23:55)
[2020-05-17] MEDS: Insulin LISPRO 300 UNITS/3 ML VIAL SUBQ SCH ×4 (07:53→20:28)
[2020-05-17] MEDS: Calcium Acetate 667 MG CAPSULE PO SCH ×3 (07:59→17:02)
[2020-05-17] MEDS: Metoprolol XL (24 HR) Succ 25 MG TAB.ER.24H PO SCH ×2 (07:59→20:26)
[2020-05-17] MEDS: Aspirin 81 MG TAB.CHEW PO SCH (07:59)
[2020-05-17] MEDS: Cholecalciferol (D-3) 1,000 UNIT (25MCG) TABLET PO SCH (07:59)
[2020-05-17] MEDS: amLODIPine 5 MG TABLET PO SCH (08:00)
[2020-05-17] MEDS: Dexamethasone Sodium Phos/PF 10 MG/ML VIAL IVP SCH (08:00)
[2020-05-17 08:25] LABS: Prothrombin Time 22.6 Seconds (9.4-12.1)
[2020-05-17 08:26] LABS: Calcium 8.6 mg/dL (8.6-10.3); Potassium 3.9 mEq/L (3.5-5.1)
[2020-05-17] MEDS: Furosemide 80 MG in 0.9 % Sodium Chloride 50 ML IVPB SCH ×2 (10:53→20:28)
[2020-05-17] MEDS ORDERED: Furosemide 40 MG TABLET PO SCH (11:00)
[2020-05-17] MEDS: *HR* LORazepam 0.5 MG TABLET PO PRN ×2 (11:34→20:25)
[2020-05-17] MEDS ORDERED: Furosemide 40 MG TABLET PO STA (14:00)
[2020-05-17] MEDS: Isosorbide MONOnitrate (24 HR) 60 MG TAB.ER.24H PO SCH (14:05)
[2020-05-17] MEDS ORDERED: *HR* Warfarin 2 MG TABLET PO ONE (18:00)
[2020-05-17] MEDS: Acetaminophen 325 MG TABLET PO PRN (18:16)
[2020-05-17] MEDS ORDERED: Morphine Sulfate 2 MG/ML SYRINGE IVP ONE (21:29)
[2020-05-18 00:39] VITALS: BP 158/67
[2020-05-18] MEDS: Ipratropium 1 PUFF INHALER IH SCH (03:56)
== END 2020-05-18 03:55 | DRG 177 ==
LOC: 2NENU → SUATTDRO 22:17
PROVIDERS: ADMIT Internal Medicine; ATTEND Family Medicine

== ENCOUNTER 2020-08-21 13:39 | Inpatient (IN) ==
[2020-08-21] MEDS ORDERED: Ondansetron 4 MG/2 ML VIAL IVP PRN (16:47)
[2020-08-21] MEDS ORDERED: Naloxone 0.4 MG/ML INJ IVP PRN (16:47)
[2020-08-21] MEDS ORDERED: D5% in Water 1,000 ML IVC PRN (16:51)
[2020-08-21] MEDS ORDERED: Dextrose Gel 15 GM/37.5 ML TUBE PO PRN ×2 (16:51)
[2020-08-21] MEDS ORDERED: *HR* Dextrose 50 % in Water (Vial) 50 ML VIAL IVP PRN (16:51)
[2020-08-21 18:12] LABS: Basophils % 0.1 %; Hematocrit 35.6 % (35.3-44.9); Hemoglobin 11.2 g/dL (11.5-15.4); Immature Granulocytes % 0.5 % (0-4); Lymphocytes # 0.4 K/mcL (0.6-4.6); Lymphocytes % 2.9 %; Mean Corpuscular HGB Conc 31.5 g/dL (31.6-35.5); Mean Corpuscular Hemoglobin 30.9 pg (28.0-33.3); Mean Corpuscular Volume 98.1 fL (83.0-100.0); Mean Platelet Volume 9.7 fL (9.4-12.4); Neutrophils # 12.5 K/mcL (1.6-8.9); Platelet Count 199 K/mcL (140-400); Red Blood Count 3.63 M/mcL (3.82-4.97); Red Cell Distribution Width 14.3 % (11.5-14.5); Segmented Neutrophils % 89.5 %
[2020-08-21 18:25] LABS: Prothrombin Time 68.6 Seconds (9.4-12.1)
[2020-08-21 18:26] LABS: INR 6.2
[2020-08-21 18:29] LABS: Calcium 9.5 mg/dL (8.6-10.3); Potassium 3.8 mEq/L (3.5-5.1)
[2020-08-21] MEDS: Budesonide/Formoterol 160/4.5 1 PUFF INH IH SCH (19:45)
[2020-08-21] MEDS: Ipratropium/Albuterol Neb 3 ML IH SCH ×2 (19:45→23:47)
[2020-08-21] MEDS: Insulin LISPRO 300 UNITS/3 ML VIAL SUBQ SCH (21:02)
[2020-08-21] MEDS: MethylPREDNISolone 40 MG/ML VIAL IVP SCH (21:02)
[2020-08-21] MEDS: Furosemide 40 MG/4 ML VIAL IVP SCH (21:03)
[2020-08-21] MEDS ORDERED: *HR* LORazepam 2 MG/ML VIAL IVP ONE (23:41)
[2020-08-22 03:29] LABS: Basophils % 0.2 %; Hematocrit 34.4 % (35.3-44.9); Immature Granulocytes % 0.7 % (0-4); Lymphocytes # 0.3 K/mcL (0.6-4.6); Lymphocytes % 3.5 %; Mean Corpuscular Hemoglobin 31.1 pg (28.0-33.3); Mean Corpuscular Volume 97.2 fL (83.0-100.0); Monocytes # 0.2 K/mcL (0.0-1.3); Monocytes % 2.4 %; Neutrophils # 8.2 K/mcL (1.6-8.9); Platelet Count 204 K/mcL (140-400); Red Blood Count 3.54 M/mcL (3.82-4.97); Red Cell Distribution Width 14.6 % (11.5-14.5); Segmented Neutrophils % 93.2 %; White Blood Count 8.8 K/mcL (4.3-11.1)
[2020-08-22] MEDS: Ipratropium/Albuterol Neb 3 ML IH SCH ×6 (03:38→23:44)
[2020-08-22 03:43] LABS: Calcium 9.6 mg/dL (8.6-10.3); Magnesium 2.1 mg/dL (1.6-2.6); Phosphorous 3.7 mg/dL (2.7-4.5); Potassium 4.4 mEq/L (3.5-5.1)
[2020-08-22 03:45] LABS: INR 3.6; Prothrombin Time 39.7 Seconds (9.4-12.1)
[2020-08-22] MEDS: MethylPREDNISolone 40 MG/ML VIAL IVP SCH ×2 (04:48→18:01)
[2020-08-22] MEDS: Furosemide 40 MG/4 ML VIAL IVP SCH ×2 (07:28→18:02)
[2020-08-22] MEDS: Budesonide/Formoterol 160/4.5 1 PUFF INH IH SCH ×2 (07:34→20:13)
[2020-08-22] MEDS: Insulin LISPRO 300 UNITS/3 ML VIAL SUBQ SCH ×4 (08:03→20:46)
[2020-08-22] MEDS: Aspirin Enteric Coated 81 MG Tablet PO SCH (08:20)
[2020-08-22] MEDS ORDERED: *HR* Metoprolol 5 MG/5 ML VIAL IVP ONE ×3 (09:50→14:18)
[2020-08-22] MEDS ORDERED: *HR* Heparin 10,000 UNIT/10 ML VIAL IV PRN (10:07)
[2020-08-22] MEDS ORDERED: 0.9 % Sodium Chloride 250 ML IVC PRN (10:07)
[2020-08-22] MEDS ORDERED: Perflutren Lipid Microsphere 1.3 ML in 0.9 % Sodium Chloride 8.7 ML IVP PRN (10:08)
[2020-08-22] MEDS ORDERED: 0.9 % Sodium Chloride 1,000 ML PRIME SCH (10:15)
[2020-08-22 11:19] LABS: Hepatitis B Surface Antibody < 3.10 mIU/mL
[2020-08-22 11:30] LABS: Hepatitis B Surface Antigen Nonreactive (Nonreactive)
[2020-08-22] MEDS: Metoprolol XL (24 HR) Succ 50 MG TAB.ER.24H PO SCH ×2 (14:58→20:42)
[2020-08-22] MEDS ORDERED: Warfarin perPT PO PRN (18:00)
[2020-08-22] MEDS: DilTIAZem CD (24hr) 120 MG CAP.ER.24H PO SCH (18:52)
[2020-08-22] MEDS ORDERED: *HR* LORazepam 2 MG/ML VIAL IVP ONE (20:39)
[2020-08-22] MEDS: *HR* OxyCODONE Immed Rel 5 MG TABLET PO PRN (20:42)
[2020-08-23] MEDS: Ipratropium/Albuterol Neb 3 ML IH SCH ×3 (04:44→11:47)
[2020-08-23 05:42] LABS: Basophils % 0.1 %; Hematocrit 35.1 % (35.3-44.9); Immature Granulocytes % 0.3 % (0-4); Lymphocytes # 0.8 K/mcL (0.6-4.6); Lymphocytes % 8.9 %; Mean Corpuscular HGB Conc 31.3 g/dL (31.6-35.5); Mean Corpuscular Hemoglobin 30.8 pg (28.0-33.3); Mean Corpuscular Volume 98.3 fL (83.0-100.0); Mean Platelet Volume 10.4 fL (9.4-12.4); Monocytes # 0.7 K/mcL (0.0-1.3); Neutrophils # 7.4 K/mcL (1.6-8.9); Platelet Count 214 K/mcL (140-400); Red Blood Count 3.57 M/mcL (3.82-4.97); Red Cell Distribution Width 14.8 % (11.5-14.5); Segmented Neutrophils % 82.7 %; White Blood Count 8.9 K/mcL (4.3-11.1)
[2020-08-23 05:48] LABS: INR 1.9; Prothrombin Time 21.5 Seconds (9.4-12.1)
[2020-08-23] MEDS: MethylPREDNISolone 40 MG/ML VIAL IVP SCH ×2 (06:11→16:55)
[2020-08-23 06:16] LABS: Calcium 9.8 mg/dL (8.6-10.3); Magnesium 2.2 mg/dL (1.6-2.6); Phosphorous 4.1 mg/dL (2.7-4.5); Potassium 4.7 mEq/L (3.5-5.1)
[2020-08-23] MEDS ORDERED: 0.9 % Sodium Chloride 250 ML IVC PRN (07:32)
[2020-08-23] MEDS ORDERED: *HR* Heparin 10,000 UNIT/10 ML VIAL IV PRN (07:32)
[2020-08-23] MEDS: DilTIAZem CD (24hr) 120 MG CAP.ER.24H PO SCH (07:40)
[2020-08-23] MEDS: Aspirin Enteric Coated 81 MG Tablet PO SCH (07:40)
[2020-08-23] MEDS: Metoprolol XL (24 HR) Succ 50 MG TAB.ER.24H PO SCH ×2 (07:41→20:15)
[2020-08-23] MEDS: Budesonide/Formoterol 160/4.5 1 PUFF INH IH SCH ×2 (07:43→22:17)
[2020-08-23] MEDS ORDERED: *HR* LORazepam 0.5 MG TABLET PO SCH (07:44)
[2020-08-23] MEDS ORDERED: 0.9 % Sodium Chloride 1,000 ML PRIME SCH (07:45)
[2020-08-23] MEDS: Insulin LISPRO 300 UNITS/3 ML VIAL SUBQ SCH ×4 (07:52→20:16)
[2020-08-23] MEDS: Furosemide 40 MG/4 ML VIAL IVP SCH ×2 (07:55→16:54)
[2020-08-23] MEDS: DilTIAZem 50 MG in 0.9 % Sodium Chloride 40 ML IVC SCH ×2 (12:27→21:32)
[2020-08-23] MEDS: ALPRAZolam 0.5 MG TABLET PO PRN ×2 (14:23→22:45)
[2020-08-23] MEDS: Levalbuterol Neb 1.25 MG/3 ML IH SCH ×2 (16:18→22:18)
[2020-08-23] MEDS: *HR* OxyCODONE Immed Rel 5 MG TABLET PO PRN (17:05)
[2020-08-23] MEDS ORDERED: *HR* Warfarin 7.5 MG TABLET PO ONE (18:00)
[2020-08-24] MEDS: Levalbuterol Neb 1.25 MG/3 ML IH SCH ×4 (04:03→22:56)
[2020-08-24 04:30] LABS: Hematocrit 31.5 % (35.3-44.9); Hemoglobin 9.8 g/dL (11.5-15.4); Immature Granulocytes % 0.5 % (0-4); Lymphocytes # 0.3 K/mcL (0.6-4.6); Lymphocytes % 4.5 %; Mean Corpuscular HGB Conc 31.1 g/dL (31.6-35.5); Mean Corpuscular Hemoglobin 30.7 pg (28.0-33.3); Mean Corpuscular Volume 98.7 fL (83.0-100.0); Mean Platelet Volume 9.8 fL (9.4-12.4); Monocytes # 0.5 K/mcL (0.0-1.3); Monocytes % 6.8 %; Neutrophils # 6.7 K/mcL (1.6-8.9); Platelet Count 189 K/mcL (140-400); Red Blood Count 3.19 M/mcL (3.82-4.97); Red Cell Distribution Width 15.3 % (11.5-14.5); Segmented Neutrophils % 88.2 %; White Blood Count 7.6 K/mcL (4.3-11.1)
[2020-08-24 04:44] LABS: INR 1.5; Prothrombin Time 17.3 Seconds (9.4-12.1)
[2020-08-24 04:46] LABS: Calcium 9.1 mg/dL (8.6-10.3); Phosphorous 3.3 mg/dL (2.7-4.5); Potassium 4.1 mEq/L (3.5-5.1)
[2020-08-24] MEDS: MethylPREDNISolone 40 MG/ML VIAL IVP SCH ×2 (05:30→16:53)
[2020-08-24] MEDS: DilTIAZem 50 MG in 0.9 % Sodium Chloride 40 ML IVC SCH (05:30)
[2020-08-24] MEDS: DilTIAZem CD (24hr) 120 MG CAP.ER.24H PO SCH (07:19)
[2020-08-24] MEDS: Aspirin Enteric Coated 81 MG Tablet PO SCH (07:19)
[2020-08-24] MEDS: Metoprolol XL (24 HR) Succ 50 MG TAB.ER.24H PO SCH ×2 (07:19→20:18)
[2020-08-24] MEDS: Furosemide 40 MG/4 ML VIAL IVP SCH (07:20)
[2020-08-24] MEDS: Insulin LISPRO 300 UNITS/3 ML VIAL SUBQ SCH ×4 (07:27→20:19)
[2020-08-24] MEDS: Budesonide/Formoterol 160/4.5 1 PUFF INH IH SCH ×2 (10:37→22:56)
[2020-08-24] MEDS: Furosemide 40 MG TABLET PO SCH (16:53)
[2020-08-24] MEDS ORDERED: *HR* Warfarin 7.5 MG TABLET PO ONE (18:45)
[2020-08-24] MEDS: ALPRAZolam 0.5 MG TABLET PO PRN (20:18)
[2020-08-24] MEDS: *HR* OxyCODONE Immed Rel 5 MG TABLET PO PRN (23:13)
[2020-08-25] MEDS: Levalbuterol Neb 1.25 MG/3 ML IH SCH ×4 (03:57→21:24)
[2020-08-25] MEDS: MethylPREDNISolone 40 MG/ML VIAL IVP SCH ×2 (05:16→17:10)
[2020-08-25] MEDS: ALPRAZolam 0.5 MG TABLET PO PRN ×2 (05:16→20:18)
[2020-08-25 05:59] LABS: Hematocrit 34.2 % (35.3-44.9); Hemoglobin 10.5 g/dL (11.5-15.4); Immature Granulocytes % 0.6 % (0-4); Lymphocytes # 0.5 K/mcL (0.6-4.6); Lymphocytes % 4.9 %; Mean Corpuscular HGB Conc 30.7 g/dL (31.6-35.5); Mean Corpuscular Hemoglobin 31.3 pg (28.0-33.3); Mean Corpuscular Volume 102.1 fL (83.0-100.0); Mean Platelet Volume 10.1 fL (9.4-12.4); Monocytes # 0.7 K/mcL (0.0-1.3); Monocytes % 6.7 %; Neutrophils # 9.3 K/mcL (1.6-8.9); Nucleated Red Blood Cells 0.3 /100 WBC (0); Platelet Count 191 K/mcL (140-400); Red Blood Count 3.35 M/mcL (3.82-4.97); Red Cell Distribution Width 15.9 % (11.5-14.5); Segmented Neutrophils % 87.8 %; White Blood Count 10.6 K/mcL (4.3-11.1)
[2020-08-25 06:07] LABS: INR 2.3
[2020-08-25 06:16] LABS: Calcium 9.4 mg/dL (8.6-10.3); Magnesium 2.1 mg/dL (1.6-2.6); Phosphorous 3.7 mg/dL (2.7-4.5); Potassium 4.6 mEq/L (3.5-5.1)
[2020-08-25] MEDS: Metoprolol XL (24 HR) Succ 50 MG TAB.ER.24H PO SCH ×2 (08:09→20:17)
[2020-08-25] MEDS: Aspirin Enteric Coated 81 MG Tablet PO SCH (08:09)
[2020-08-25] MEDS: DilTIAZem CD (24hr) 120 MG CAP.ER.24H PO SCH (08:10)
[2020-08-25] MEDS: Insulin LISPRO 300 UNITS/3 ML VIAL SUBQ SCH ×4 (08:10→20:19)
[2020-08-25] MEDS: Furosemide 40 MG TABLET PO SCH ×2 (08:10→16:43)
[2020-08-25] MEDS: Budesonide/Formoterol 160/4.5 1 PUFF INH IH SCH ×2 (11:13→21:25)
[2020-08-25] MEDS ORDERED: *HR* Warfarin 4 MG TABLET PO ONE (18:00)
[2020-08-26] MEDS: *HR* OxyCODONE Immed Rel 5 MG TABLET PO PRN (02:55)
[2020-08-26 03:27] LABS: Basophils % 0.1 %; Hematocrit 33.5 % (35.3-44.9); Hemoglobin 10.4 g/dL (11.5-15.4); Immature Granulocytes % 0.6 % (0-4); Lymphocytes # 0.4 K/mcL (0.6-4.6); Lymphocytes % 3.8 %; Mean Platelet Volume 9.7 fL (9.4-12.4); Monocytes # 0.7 K/mcL (0.0-1.3); Monocytes % 5.9 %; Neutrophils # 9.8 K/mcL (1.6-8.9); Platelet Count 203 K/mcL (140-400); Red Blood Count 3.35 M/mcL (3.82-4.97); Red Cell Distribution Width 15.7 % (11.5-14.5); Segmented Neutrophils % 89.6 %
[2020-08-26 03:36] LABS: INR 3.7; Prothrombin Time 41.2 Seconds (9.4-12.1)
[2020-08-26 03:46] LABS: Calcium 9.5 mg/dL (8.6-10.3); Magnesium 2.1 mg/dL (1.6-2.6); Phosphorous 4.1 mg/dL (2.7-4.5); Potassium 4.5 mEq/L (3.5-5.1)
[2020-08-26] MEDS: Levalbuterol Neb 1.25 MG/3 ML IH SCH ×3 (03:59→15:38)
[2020-08-26] MEDS: MethylPREDNISolone 40 MG/ML VIAL IVP SCH (05:50)
[2020-08-26] MEDS: ALPRAZolam 0.5 MG TABLET PO PRN (05:50)
[2020-08-26] MEDS ORDERED: 0.9 % Sodium Chloride 250 ML IVC PRN (08:01)
[2020-08-26] MEDS ORDERED: *HR* Heparin 10,000 UNIT/10 ML VIAL IV PRN ×2 (08:01)
[2020-08-26] MEDS: Furosemide 40 MG TABLET PO SCH (08:02)
[2020-08-26] MEDS: Metoprolol XL (24 HR) Succ 50 MG TAB.ER.24H PO SCH (08:09)
[2020-08-26] MEDS: Insulin LISPRO 300 UNITS/3 ML VIAL SUBQ SCH ×2 (08:09→11:49)
[2020-08-26] MEDS: DilTIAZem CD (24hr) 120 MG CAP.ER.24H PO SCH (08:10)
[2020-08-26] MEDS: Aspirin Enteric Coated 81 MG Tablet PO SCH (08:10)
[2020-08-26] MEDS ORDERED: 0.9 % Sodium Chloride 1,000 ML PRIME SCH (08:15)
[2020-08-26] MEDS: Budesonide/Formoterol 160/4.5 1 PUFF INH IH SCH (09:45)
[2020-08-26 14:40] VITALS: BP 127/83
== END 2020-08-26 15:38 | disposition home health service (06) | DRG 291 ==
LOC: 2NNU → SUATTDRO 15:43 → 2ANU 08-24 16:36
PROVIDERS: ADMIT Internal Medicine; ATTEND Student in an Organized Health Care Education/Training Program

== ENCOUNTER 2020-10-15 15:52 | Inpatient (IN) ==
[2020-10-15] MEDS ORDERED: Naloxone 0.4 MG/ML INJ IVP PRN (19:45)
[2020-10-15] MEDS ORDERED: Ondansetron ODT 4 MG TAB.RAPDIS SL PRN (19:45)
[2020-10-15] MEDS ORDERED: Acetaminophen 325 MG TABLET PO PRN (19:45)
[2020-10-15] MEDS ORDERED: Dextrose Gel 15 GM/37.5 ML TUBE PO PRN ×2 (20:21)
[2020-10-15] MEDS ORDERED: D5% in Water 1,000 ML IVC PRN (20:21)
[2020-10-15] MEDS ORDERED: *HR* Dextrose 50 % in Water (Vial) 50 ML VIAL IVP PRN (20:21)
[2020-10-15] MEDS ORDERED: *HR* Warfarin 3 MG TABLET PO SCH (21:00)
[2020-10-15] MEDS: Budesonide/Formoterol 160/4.5 1 PUFF INH IH SCH (21:38)
[2020-10-15] MEDS: *HR* OxyCODONE Immed Rel 5 MG TABLET PO PRN (21:46)
[2020-10-15] MEDS: Metoprolol XL (24 HR) Succ 50 MG TAB.ER.24H PO SCH (21:46)
[2020-10-15] MEDS: Insulin LISPRO 300 UNITS/3 ML VIAL SUBQ SCH (21:48)
[2020-10-16 02:35] LABS: Basophils # 0.1 K/mcL (0.0-0.2); Basophils % 0.7 %; Eosinophils # 0.2 K/mcL (0.0-0.6); Hemoglobin 10.4 g/dL (11.5-15.4); Immature Granulocytes % 0.4 % (0-4); Lymphocytes # 1.7 K/mcL (0.6-4.6); Lymphocytes % 23.2 %; Mean Corpuscular HGB Conc 30.6 g/dL (31.6-35.5); Mean Corpuscular Volume 101.5 fL (83.0-100.0); Mean Platelet Volume 10.4 fL (9.4-12.4); Monocytes # 0.9 K/mcL (0.0-1.3); Monocytes % 12.8 %; Neutrophils # 4.3 K/mcL (1.6-8.9); Platelet Count 181 K/mcL (140-400); Red Blood Count 3.35 M/mcL (3.82-4.97); Red Cell Distribution Width 15.5 % (11.5-14.5); Segmented Neutrophils % 59.9 %; White Blood Count 7.2 K/mcL (4.3-11.1)
[2020-10-16 02:42] LABS: INR 2.3; Prothrombin Time 26.4 Seconds (9.4-12.1)
[2020-10-16 02:54] LABS: Albumin 3.9 g/dL (3.5-5.7); Albumin/Globulin Ratio 1.5 (1.1-2.2); Bilirubin,Total 0.4 mg/dL (0.3-1.0); Calcium 9.1 mg/dL (8.6-10.3); Globulin 2.6 g/dL (2.4-3.5); Magnesium 1.9 mg/dL (1.6-2.6); Potassium 4.5 mEq/L (3.5-5.1); Total Protein 6.5 g/dL (6.4-8.9)
[2020-10-16 07:38] LABS: Hepatitis B Surface Antibody < 3.10 mIU/mL
[2020-10-16 07:49] LABS: Hepatitis B Surface Antigen Nonreactive (Nonreactive)
[2020-10-16] MEDS: Insulin LISPRO 300 UNITS/3 ML VIAL SUBQ SCH ×3 (08:16→16:42)
[2020-10-16] MEDS ORDERED: 0.9 % Sodium Chloride 250 ML IVC PRN (08:37)
[2020-10-16] MEDS ORDERED: *HR* Heparin 10,000 UNIT/10 ML VIAL IV PRN (08:37)
[2020-10-16] MEDS ORDERED: 0.9 % Sodium Chloride 1,000 ML PRIME SCH (08:45)
[2020-10-16] MEDS ORDERED: cefTRIAXone 1,000 MG in 0.9 % Sodium Chloride Mini Bag 100 ML IVPB SCH (09:00)
[2020-10-16] MEDS: Budesonide/Formoterol 160/4.5 1 PUFF INH IH SCH ×2 (10:38→22:47)
[2020-10-16] MEDS: DilTIAZem CD (24hr) 180 MG CAP.ER.24H PO SCH (11:33)
[2020-10-16] MEDS: hydrALAZINE 25 MG TABLET PO SCH ×2 (11:33→21:05)
[2020-10-16] MEDS: Metoprolol XL (24 HR) Succ 50 MG TAB.ER.24H PO SCH ×2 (11:33→21:04)
[2020-10-16] MEDS: Furosemide 40 MG TABLET PO SCH ×2 (11:33→18:05)
[2020-10-16] MEDS: Magnesium Oxide 400 MG TABLET PO SCH (11:37)
[2020-10-16] MEDS: *HR* LORazepam 0.5 MG TABLET PO SCH (11:37)
[2020-10-16] MEDS ORDERED: cefTRIAXone 1,000 MG in Water for inj. (sterile) 10 ML IVP SCH (15:00)
[2020-10-16] MEDS ORDERED: *HR* Warfarin 3 MG TABLET PO ONE (18:00)
[2020-10-16] MEDS ORDERED: *HR* Warfarin 3 MG TABLET PO SCH (18:00)
[2020-10-16] MEDS ORDERED: Warfarin perPT PO PRN (18:00)
[2020-10-16] MEDS: *HR* OxyCODONE Immed Rel 5 MG TABLET PO PRN (21:04)
[2020-10-17] MEDS: *HR* OxyCODONE Immed Rel 5 MG TABLET PO PRN ×2 (01:28→16:24)
[2020-10-17] MEDS: Melatonin 3 MG TABLET PO PRN ×2 (01:28→21:16)
[2020-10-17 01:38] LABS: Hematocrit 34.8 % (35.3-44.9); Hemoglobin 10.8 g/dL (11.5-15.4); Mean Corpuscular Hemoglobin 31.1 pg (28.0-33.3); Mean Corpuscular Volume 100.3 fL (83.0-100.0); Mean Platelet Volume 10.4 fL (9.4-12.4); Platelet Count 146 K/mcL (140-400); Red Blood Count 3.47 M/mcL (3.82-4.97); Red Cell Distribution Width 15.3 % (11.5-14.5)
[2020-10-17 01:47] LABS: INR 2.7; Prothrombin Time 30.9 Seconds (9.4-12.1)
[2020-10-17 01:55] LABS: Potassium 4.1 mEq/L (3.5-5.1)
[2020-10-17] MEDS: Magnesium Oxide 400 MG TABLET PO SCH (07:29)
[2020-10-17] MEDS: Furosemide 40 MG TABLET PO SCH ×2 (07:29→16:32)
[2020-10-17] MEDS: Insulin LISPRO 300 UNITS/3 ML VIAL SUBQ SCH ×3 (07:29→16:33)
[2020-10-17] MEDS: hydrALAZINE 25 MG TABLET PO SCH ×2 (07:29→20:00)
[2020-10-17] MEDS: Metoprolol XL (24 HR) Succ 50 MG TAB.ER.24H PO SCH ×2 (07:30→20:00)
[2020-10-17] MEDS: DilTIAZem CD (24hr) 180 MG CAP.ER.24H PO SCH (07:30)
[2020-10-17] MEDS: Budesonide/Formoterol 160/4.5 1 PUFF INH IH SCH ×2 (08:08→23:21)
[2020-10-17] MEDS ORDERED: Ondansetron 4 MG/2 ML VIAL IVP PRN (09:25)
[2020-10-17] MEDS ORDERED: cefTRIAXone 1,000 MG in Water for inj. (sterile) 10 ML IVP ONE (16:00)
[2020-10-17] MEDS ORDERED: *HR* Warfarin 3 MG TABLET PO ONE (18:00)
[2020-10-17] MEDS ORDERED: Cefdinir 300 MG CAPSULE PO SCH (21:00)
[2020-10-18 05:05] LABS: Hematocrit 31.9 % (35.3-44.9); Hemoglobin 10.2 g/dL (11.5-15.4); Mean Corpuscular Hemoglobin 32.6 pg (28.0-33.3); Mean Corpuscular Volume 101.9 fL (83.0-100.0); Mean Platelet Volume 10.6 fL (9.4-12.4); Platelet Count 169 K/mcL (140-400); Red Blood Count 3.13 M/mcL (3.82-4.97); Red Cell Distribution Width 15.7 % (11.5-14.5); White Blood Count 6.3 K/mcL (4.3-11.1)
[2020-10-18 05:11] LABS: INR 2.5; Prothrombin Time 28.4 Seconds (9.4-12.1)
[2020-10-18 05:26] LABS: Calcium 9.1 mg/dL (8.6-10.3); Potassium 4.8 mEq/L (3.5-5.1)
[2020-10-18] MEDS: Insulin LISPRO 300 UNITS/3 ML VIAL SUBQ SCH ×3 (07:15→18:07)
[2020-10-18] MEDS: Budesonide/Formoterol 160/4.5 1 PUFF INH IH SCH ×2 (07:19→19:49)
[2020-10-18] MEDS ORDERED: 0.9 % Sodium Chloride 250 ML IVC PRN (07:57)
[2020-10-18] MEDS ORDERED: *HR* Heparin 10,000 UNIT/10 ML VIAL IV PRN (07:57)
[2020-10-18] MEDS: Furosemide 40 MG TABLET PO SCH ×2 (09:46→18:11)
[2020-10-18] MEDS: *HR* LORazepam 0.5 MG TABLET PO SCH (09:46)
[2020-10-18] MEDS: hydrALAZINE 25 MG TABLET PO SCH ×2 (14:59→22:04)
[2020-10-18] MEDS: Metoprolol XL (24 HR) Succ 50 MG TAB.ER.24H PO SCH ×2 (14:59→22:04)
[2020-10-18] MEDS: DilTIAZem CD (24hr) 180 MG CAP.ER.24H PO SCH (15:09)
[2020-10-18] MEDS ORDERED: cefTRIAXone 1,000 MG in 0.9 % Sodium Chloride Mini Bag 100 ML IVPB ONE (16:00)
[2020-10-18] MEDS: Warfarin 4 MG, Warfarin 0.5 MG PO SCH (18:10)
[2020-10-18] MEDS ORDERED: *HR* LORazepam 2 MG/ML VIAL IVP ONE (22:03)
[2020-10-18] MEDS: Melatonin 3 MG TABLET PO PRN (22:03)
[2020-10-18] MEDS: *HR* OxyCODONE Immed Rel 5 MG TABLET PO PRN (22:10)
[2020-10-18 22:45] LABS: VBG Ionized Calcium 1.09 mmol/L (1.15-1.35)
[2020-10-18 23:02] LABS: Calcium 8.8 mg/dL (8.6-10.3); Magnesium 1.9 mg/dL (1.6-2.6); Potassium 4.1 mEq/L (3.5-5.1)
[2020-10-19] MEDS ORDERED: Calcium Gluconate 1gm/50mL 1 GM/50 ML BAG IVPB ONE (00:16)
[2020-10-19 06:03] LABS: Calcium 9.1 mg/dL (8.6-10.3); Potassium 4.2 mEq/L (3.5-5.1)
[2020-10-19 06:46] LABS: Hematocrit 32.7 % (35.3-44.9); Hemoglobin 9.9 g/dL (11.5-15.4); Mean Corpuscular HGB Conc 30.3 g/dL (31.6-35.5); Mean Corpuscular Hemoglobin 30.9 pg (28.0-33.3); Mean Corpuscular Volume 102.2 fL (83.0-100.0); Mean Platelet Volume 10.1 fL (9.4-12.4); Platelet Count 168 K/mcL (140-400); Red Cell Distribution Width 15.7 % (11.5-14.5); White Blood Count 6.3 K/mcL (4.3-11.1)
[2020-10-19 07:12] LABS: INR 2.2; Prothrombin Time 25.1 Seconds (9.4-12.1)
[2020-10-19] MEDS: Insulin LISPRO 300 UNITS/3 ML VIAL SUBQ SCH ×3 (07:37→15:40)
[2020-10-19] MEDS: Budesonide/Formoterol 160/4.5 1 PUFF INH IH SCH ×2 (07:52→22:25)
[2020-10-19] MEDS: hydrALAZINE 25 MG TABLET PO SCH ×2 (09:41→20:49)
[2020-10-19] MEDS: Metoprolol XL (24 HR) Succ 50 MG TAB.ER.24H PO SCH ×2 (09:41→20:49)
[2020-10-19] MEDS: Furosemide 40 MG TABLET PO SCH (09:41)
[2020-10-19] MEDS: DilTIAZem CD (24hr) 180 MG CAP.ER.24H PO SCH (09:41)
[2020-10-19] MEDS ORDERED: Furosemide 40 MG TABLET PO PRN (14:18)
[2020-10-19] MEDS ORDERED: *HR* LORazepam 0.5 MG TABLET PO ONE (15:39)
[2020-10-19] MEDS: Warfarin 4 MG, Warfarin 0.5 MG PO SCH (16:52)
[2020-10-19] MEDS: Melatonin 3 MG TABLET PO PRN (20:49)
[2020-10-19] MEDS: *HR* OxyCODONE Immed Rel 5 MG TABLET PO PRN (22:22)
[2020-10-20] MEDS ORDERED: Ondansetron ODT 4 MG TAB.RAPDIS SL PRN (01:29)
[2020-10-20 05:11] LABS: Hematocrit 34.2 % (35.3-44.9); Hemoglobin 10.3 g/dL (11.5-15.4); Mean Corpuscular HGB Conc 30.1 g/dL (31.6-35.5); Mean Corpuscular Hemoglobin 30.7 pg (28.0-33.3); Mean Corpuscular Volume 101.8 fL (83.0-100.0); Mean Platelet Volume 10.1 fL (9.4-12.4); Platelet Count 168 K/mcL (140-400); Red Blood Count 3.36 M/mcL (3.82-4.97); Red Cell Distribution Width 15.8 % (11.5-14.5); White Blood Count 7.1 K/mcL (4.3-11.1)
[2020-10-20 05:18] LABS: INR 2.1; Prothrombin Time 23.9 Seconds (9.4-12.1)
[2020-10-20 05:30] LABS: Calcium 9.2 mg/dL (8.6-10.3); Potassium 4.4 mEq/L (3.5-5.1)
[2020-10-20] MEDS: Budesonide/Formoterol 160/4.5 1 PUFF INH IH SCH ×2 (08:00→20:31)
[2020-10-20] MEDS: *HR* OxyCODONE Immed Rel 5 MG TABLET PO PRN (08:17)
[2020-10-20] MEDS: Metoprolol XL (24 HR) Succ 50 MG TAB.ER.24H PO SCH ×2 (08:18→20:47)
[2020-10-20] MEDS: DilTIAZem CD (24hr) 180 MG CAP.ER.24H PO SCH (08:18)
[2020-10-20] MEDS: hydrALAZINE 25 MG TABLET PO SCH ×2 (08:18→20:47)
[2020-10-20] MEDS: Insulin LISPRO 300 UNITS/3 ML VIAL SUBQ SCH ×3 (08:18→17:06)
[2020-10-20] MEDS: Warfarin 4 MG, Warfarin 0.5 MG PO SCH (17:06)
[2020-10-20] MEDS: Ipratropium/Albuterol Neb 3 ML IH PRN (20:29)
[2020-10-20] MEDS: *HR* LORazepam 0.5 MG TABLET PO PRN (20:47)
[2020-10-21 04:14] LABS: Calcium 9.1 mg/dL (8.6-10.3); Potassium 4.7 mEq/L (3.5-5.1)
[2020-10-21 04:26] LABS: Hematocrit 33.2 % (35.3-44.9); Hemoglobin 9.9 g/dL (11.5-15.4); INR 3.1; Mean Corpuscular HGB Conc 29.8 g/dL (31.6-35.5); Mean Corpuscular Hemoglobin 30.6 pg (28.0-33.3); Mean Corpuscular Volume 102.5 fL (83.0-100.0); Mean Platelet Volume 10.4 fL (9.4-12.4); Platelet Count 191 K/mcL (140-400); Prothrombin Time 34.4 Seconds (9.4-12.1); Red Blood Count 3.24 M/mcL (3.82-4.97); Red Cell Distribution Width 15.8 % (11.5-14.5)
[2020-10-21 07:11] VITALS: PULSE 95; O2SAT 95
[2020-10-21] MEDS ORDERED: *HR* Heparin 10,000 UNIT/10 ML VIAL IV PRN (07:45)
[2020-10-21] MEDS ORDERED: 0.9 % Sodium Chloride 1,000 ML PRIME SCH (07:45)
[2020-10-21] MEDS ORDERED: 0.9 % Sodium Chloride 250 ML IVC PRN (07:45)
[2020-10-21] MEDS: Ipratropium/Albuterol Neb 3 ML IH PRN (07:50)
[2020-10-21] MEDS: Budesonide/Formoterol 160/4.5 1 PUFF INH IH SCH (07:51)
[2020-10-21] MEDS: Metoprolol XL (24 HR) Succ 50 MG TAB.ER.24H PO SCH (07:53)
[2020-10-21] MEDS: Insulin LISPRO 300 UNITS/3 ML VIAL SUBQ SCH ×2 (07:53→11:21)
[2020-10-21] MEDS: *HR* LORazepam 0.5 MG TABLET PO PRN (07:53)
[2020-10-21] MEDS ORDERED: *HR* LORazepam 0.5 MG TABLET PO PRN (11:25)
[2020-10-21 13:09] VITALS: BP 141/77; TEMP 98
[2020-10-21] MEDS: DilTIAZem CD (24hr) 180 MG CAP.ER.24H PO SCH (14:08)
[2020-10-21] MEDS: hydrALAZINE 25 MG TABLET PO SCH (14:08)
== END 2020-10-21 16:32 | DRG 689 ==
LOC: 2ANU
PROVIDERS: ADMIT Internal Medicine; ATTEND Internal Medicine

== ENCOUNTER 2020-11-08 19:18 | Inpatient (IN) ==
[2020-11-08] MEDS ORDERED: Ondansetron 4 MG/2 ML VIAL IVP PRN (22:28)
[2020-11-08] MEDS ORDERED: Naloxone 0.4 MG/ML INJ IVP PRN (22:28)
[2020-11-08] MEDS ORDERED: Acetaminophen 325 MG TABLET PO PRN (22:28)
[2020-11-08 23:22] LABS: INR 8.4; Prothrombin Time 91.6 Seconds (9.4-12.1)
[2020-11-09] MEDS: *HR* LORazepam 0.5 MG TABLET PO PRN ×2 (00:56→22:08)
[2020-11-09] MEDS ORDERED: Albuterol 2.5 MG/3 ML NEBULIZER IH PRN (03:29)
[2020-11-09] MEDS: Ipratropium/Albuterol Neb 3 ML IH SCH ×4 (04:03→21:30)
[2020-11-09 05:41] LABS: Basophils % 0.3 %; Eosinophils # 0.1 K/mcL (0.0-0.6); Eosinophils % 1.6 %; Hematocrit 31.7 % (35.3-44.9); Hemoglobin 10.1 g/dL (11.5-15.4); Immature Granulocytes % 0.4 % (0-4); Lymphocytes # 0.9 K/mcL (0.6-4.6); Lymphocytes % 11.9 %; Mean Corpuscular HGB Conc 31.9 g/dL (31.6-35.5); Mean Corpuscular Hemoglobin 31.4 pg (28.0-33.3); Mean Corpuscular Volume 98.4 fL (83.0-100.0); Mean Platelet Volume 10.3 fL (9.4-12.4); Monocytes # 0.8 K/mcL (0.0-1.3); Monocytes % 10.1 %; Neutrophils # 5.8 K/mcL (1.6-8.9); Platelet Count 178 K/mcL (140-400); Red Blood Count 3.22 M/mcL (3.82-4.97); Segmented Neutrophils % 75.7 %; White Blood Count 7.6 K/mcL (4.3-11.1)
[2020-11-09 05:57] LABS: INR 7.1; Prothrombin Time 77.4 Seconds (9.4-12.1)
[2020-11-09 06:02] LABS: Alanine Aminotransferase 12 Units/L (7-52); Albumin 3.9 g/dL (3.5-5.7); Albumin/Globulin Ratio 1.5 (1.1-2.2); Alkaline Phosphatase 68 Units/L (34-104); Aspartate Amino Transferase 16 Units/L (13-39); BUN/Creatinine Ratio 9 (6-26); Bilirubin,Total 0.5 mg/dL (0.3-1.0); Blood Urea Nitrogen 34 mg/dL (8-23); Calcium 9.3 mg/dL (8.6-10.3); Carbon Dioxide 28 mEq/L (23-29); Chloride 97 mEq/L (98-107); Globulin 2.6 g/dL (2.4-3.5); Glucose 152 mg/dL (70-105); Magnesium 2.1 mg/dL (1.6-2.6); Osmolality,Calculated 289 (280-300); Phosphorous 4.5 mg/dL (2.7-4.5); Potassium 4.3 mEq/L (3.5-5.1); Sodium 134 mEq/L (136-145); Total Protein 6.5 g/dL (6.4-8.9); Troponin I < 0.03 ng/mL (< 0.04); eGFR For African Americans 14 (> 60); eGFR For Non-African Americans 11 (> 60)
[2020-11-09] MEDS ORDERED: Dextrose Gel 15 GM/37.5 ML TUBE PO PRN ×2 (06:34)
[2020-11-09] MEDS ORDERED: D5% in Water 1,000 ML IVC PRN (06:34)
[2020-11-09] MEDS ORDERED: *HR* Dextrose 50 % in Water (Vial) 50 ML VIAL IVP PRN (06:34)
[2020-11-09] MEDS: polyethylene glycoL 3350 17 GM POWD.PACK PO SCH ×2 (08:35→08:40)
[2020-11-09] MEDS ORDERED: 0.9 % Sodium Chloride 250 ML IVC PRN (09:59)
[2020-11-09] MEDS ORDERED: *HR* Heparin 10,000 UNIT/10 ML VIAL IV PRN (09:59)
[2020-11-09] MEDS ORDERED: 0.9 % Sodium Chloride 1,000 ML PRIME SCH (10:00)
[2020-11-09] MEDS ORDERED: Insulin LISPRO 300 UNITS/3 ML VIAL SUBQ SCH (12:00)
[2020-11-09] MEDS: Sennosides/Docusate Sodium TABLET PO SCH ×2 (15:02→20:25)
[2020-11-09] MEDS: *HR* OxyCODONE Immed Rel 5 MG TABLET PO PRN (16:36)
[2020-11-09] MEDS: Insulin LISPRO 300 UNITS/3 ML VIAL SUBQ SCH ×2 (16:41→20:26)
[2020-11-09] MEDS: Metoprolol XL (24 HR) Succ 50 MG TAB.ER.24H PO SCH (20:24)
[2020-11-09] MEDS: hydrALAZINE 25 MG TABLET PO SCH (20:30)
[2020-11-10] MEDS: *HR* OxyCODONE Immed Rel 5 MG TABLET PO PRN ×2 (00:39→23:15)
[2020-11-10] MEDS: Ipratropium/Albuterol Neb 3 ML IH SCH ×4 (03:51→22:35)
[2020-11-10 06:12] LABS: Basophils % 0.4 %; Eosinophils # 0.1 K/mcL (0.0-0.6); Eosinophils % 1.6 %; Hematocrit 29.4 % (35.3-44.9); Hemoglobin 9.7 g/dL (11.5-15.4); Immature Granulocytes % 0.5 % (0-4); Mean Corpuscular Hemoglobin 32.1 pg (28.0-33.3); Mean Corpuscular Volume 97.4 fL (83.0-100.0); Mean Platelet Volume 10.2 fL (9.4-12.4); Monocytes # 0.9 K/mcL (0.0-1.3); Monocytes % 11.3 %; Neutrophils # 5.9 K/mcL (1.6-8.9); Platelet Count 170 K/mcL (140-400); Red Blood Count 3.02 M/mcL (3.82-4.97); Red Cell Distribution Width 16.2 % (11.5-14.5); Segmented Neutrophils % 74.2 %
[2020-11-10 06:21] LABS: INR 1.4; Prothrombin Time 15.6 Seconds (9.4-12.1)
[2020-11-10 06:36] LABS: Calcium 9.2 mg/dL (8.6-10.3)
[2020-11-10] MEDS: Insulin LISPRO 300 UNITS/3 ML VIAL SUBQ SCH ×4 (07:54→21:13)
[2020-11-10] MEDS: Metoprolol XL (24 HR) Succ 50 MG TAB.ER.24H PO SCH ×2 (07:56→21:11)
[2020-11-10] MEDS: Sennosides/Docusate Sodium TABLET PO SCH (07:56)
[2020-11-10] MEDS: DilTIAZem CD (24hr) 180 MG CAP.ER.24H PO SCH (07:56)
[2020-11-10] MEDS: hydrALAZINE 25 MG TABLET PO SCH ×3 (07:56→21:09)
[2020-11-10] MEDS: Aspirin Enteric Coated 81 MG Tablet PO SCH (07:56)
[2020-11-10] MEDS: polyethylene glycoL 3350 17 GM POWD.PACK PO SCH (08:19)
[2020-11-10] MEDS: Ondansetron ODT 4 MG TAB.RAPDIS SL PRN (09:05)
[2020-11-10] MEDS: *HR* LORazepam 0.5 MG TABLET PO PRN ×2 (09:10→21:07)
[2020-11-10] MEDS ORDERED: *HR* Warfarin 3 MG TABLET PO ONE (18:00)
[2020-11-10] MEDS ORDERED: Warfarin perPT PO PRN (18:00)
[2020-11-10] MEDS: Melatonin 3 MG TABLET PO PRN (21:07)
[2020-11-11] MEDS: Ipratropium/Albuterol Neb 3 ML IH SCH ×4 (04:07→22:42)
[2020-11-11 06:56] LABS: Basophils % 0.4 %; Hemoglobin 9.2 g/dL (11.5-15.4); Red Cell Distribution Width 16.8 % (11.5-14.5)
[2020-11-11 06:58] LABS: Eosinophils # 0.2 K/mcL (0.0-0.6); Eosinophils % 2.5 %; Hematocrit 28.3 % (35.3-44.9); Immature Granulocytes % 0.7 % (0-4); Immature Platelets 5.7 % (1.1-6.1); Lymphocytes # 1.2 K/mcL (0.6-4.6); Lymphocytes % 15.5 %; Mean Corpuscular HGB Conc 32.5 g/dL (31.6-35.5); Mean Corpuscular Hemoglobin 32.4 pg (28.0-33.3); Mean Corpuscular Volume 99.6 fL (83.0-100.0); Mean Platelet Volume 10.5 fL (9.4-12.4); Monocytes # 1.1 K/mcL (0.0-1.3); Neutrophils # 5.1 K/mcL (1.6-8.9); Platelet Count 169 K/mcL (140-400); Red Blood Count 2.84 M/mcL (3.82-4.97); Segmented Neutrophils % 66.9 %; White Blood Count 7.6 K/mcL (4.3-11.1)
[2020-11-11 07:06] LABS: INR 1.2; Prothrombin Time 13.4 Seconds (9.4-12.1)
[2020-11-11] MEDS: Insulin LISPRO 300 UNITS/3 ML VIAL SUBQ SCH ×4 (07:30→21:45)
[2020-11-11 07:53] LABS: Calcium 8.9 mg/dL (8.6-10.3); Magnesium 2.5 mg/dL (1.6-2.6); Potassium 5.1 mEq/L (3.5-5.1)
[2020-11-11] MEDS ORDERED: *HR* Heparin 10,000 UNIT/10 ML VIAL IV PRN (07:57)
[2020-11-11] MEDS ORDERED: 0.9 % Sodium Chloride 250 ML IVC PRN (07:57)
[2020-11-11] MEDS: hydrALAZINE 25 MG TABLET PO SCH ×2 (09:26→21:43)
[2020-11-11] MEDS ORDERED: *HR* Heparin 5,000 UNIT/ML VIAL IVP PRN ×2 (09:45)
[2020-11-11 10:12] LABS: Hematocrit 28.4 % (35.3-44.9); Mean Corpuscular HGB Conc 31.7 g/dL (31.6-35.5); Mean Corpuscular Hemoglobin 31.6 pg (28.0-33.3); Mean Corpuscular Volume 99.6 fL (83.0-100.0); Mean Platelet Volume 10.3 fL (9.4-12.4); Platelet Count 150 K/mcL (140-400); Red Blood Count 2.85 M/mcL (3.82-4.97); Red Cell Distribution Width 16.6 % (11.5-14.5); White Blood Count 6.5 K/mcL (4.3-11.1)
[2020-11-11 10:23] LABS: Heparin anti-factor XA UFH < 0.04 IU/mL (0.30-0.70); INR 1.2; Prothrombin Time 13.5 Seconds (9.4-12.1)
[2020-11-11] MEDS: Metoprolol XL (24 HR) Succ 50 MG TAB.ER.24H PO SCH ×2 (10:46→21:42)
[2020-11-11] MEDS: *HR* LORazepam 0.5 MG TABLET PO PRN (11:16)
[2020-11-11] MEDS: Aspirin Enteric Coated 81 MG Tablet PO SCH (11:16)
[2020-11-11] MEDS: polyethylene glycoL 3350 17 GM POWD.PACK PO SCH (11:21)
[2020-11-11] MEDS: Heparin 25,000UNIT/250ML 1/2NS 25,000 UNIT/250 ML IV.SOLN IVC SCH (12:00)
[2020-11-11] MEDS: DilTIAZem CD (24hr) 180 MG CAP.ER.24H PO SCH (12:48)
[2020-11-11] MEDS: *HR* OxyCODONE Immed Rel 5 MG TABLET PO PRN ×2 (14:12→22:27)
[2020-11-11] MEDS ORDERED: *HR* Warfarin 3 MG TABLET PO ONE (18:00)
[2020-11-11] MEDS: ALPRAZolam 0.25 MG TABLET PO PRN (21:42)
[2020-11-12] MEDS: Melatonin 3 MG TABLET PO PRN (00:30)
[2020-11-12 02:07] LABS: Hematocrit 28.1 % (35.3-44.9); Mean Corpuscular Hemoglobin 32.4 pg (28.0-33.3); Mean Corpuscular Volume 101.1 fL (83.0-100.0); Mean Platelet Volume 10.7 fL (9.4-12.4); Platelet Count 144 K/mcL (140-400); Red Blood Count 2.78 M/mcL (3.82-4.97); Red Cell Distribution Width 16.9 % (11.5-14.5)
[2020-11-12 02:24] LABS: Calcium 8.8 mg/dL (8.6-10.3); Potassium 4.2 mEq/L (3.5-5.1)
[2020-11-12] MEDS: *HR* OxyCODONE Immed Rel 5 MG TABLET PO PRN ×2 (02:30→17:50)
[2020-11-12 02:37] LABS: INR 1.2; Prothrombin Time 14.1 Seconds (9.4-12.1)
[2020-11-12 02:38] LABS: Heparin anti-factor XA UFH 0.32 IU/mL (0.30-0.70)
[2020-11-12] MEDS: Ipratropium/Albuterol Neb 3 ML IH SCH ×4 (04:05→21:55)
[2020-11-12] MEDS: Insulin LISPRO 300 UNITS/3 ML VIAL SUBQ SCH ×5 (08:39→21:21)
[2020-11-12] MEDS: Aspirin Enteric Coated 81 MG Tablet PO SCH (08:46)
[2020-11-12] MEDS: polyethylene glycoL 3350 17 GM POWD.PACK PO SCH (08:48)
[2020-11-12] MEDS: hydrALAZINE 25 MG TABLET PO SCH ×2 (09:00→20:36)
[2020-11-12] MEDS: Metoprolol XL (24 HR) Succ 50 MG TAB.ER.24H PO SCH ×2 (09:01→20:36)
[2020-11-12] MEDS: DilTIAZem CD (24hr) 180 MG CAP.ER.24H PO SCH (11:36)
[2020-11-12] MEDS ORDERED: *HR* LORazepam 0.5 MG TABLET PO ONE (17:50)
[2020-11-12] MEDS ORDERED: Warfarin 4 MG, Warfarin 0.5 MG PO ONE (18:00)
[2020-11-12] MEDS: ALPRAZolam 0.25 MG TABLET PO PRN (20:36)
[2020-11-12] MEDS: Heparin 25,000UNIT/250ML 1/2NS 25,000 UNIT/250 ML IV.SOLN IVC SCH (20:38)
[2020-11-13] MEDS: Melatonin 3 MG TABLET PO PRN (00:10)
[2020-11-13] MEDS: *HR* OxyCODONE Immed Rel 5 MG TABLET PO PRN ×3 (00:12→16:29)
[2020-11-13] MEDS: Ipratropium/Albuterol Neb 3 ML IH SCH ×4 (03:55→22:19)
[2020-11-13 05:05] LABS: Hemoglobin 8.7 g/dL (11.5-15.4); Mean Corpuscular HGB Conc 31.1 g/dL (31.6-35.5); Mean Corpuscular Hemoglobin 31.6 pg (28.0-33.3); Mean Corpuscular Volume 101.8 fL (83.0-100.0); Mean Platelet Volume 10.7 fL (9.4-12.4); Platelet Count 158 K/mcL (140-400); Red Blood Count 2.75 M/mcL (3.82-4.97); Red Cell Distribution Width 17.2 % (11.5-14.5); White Blood Count 8.3 K/mcL (4.3-11.1)
[2020-11-13 05:13] LABS: INR 1.5; Prothrombin Time 17.5 Seconds (9.4-12.1)
[2020-11-13 05:22] LABS: Calcium 9.2 mg/dL (8.6-10.3); Potassium 4.7 mEq/L (3.5-5.1)
[2020-11-13] MEDS ORDERED: 0.9 % Sodium Chloride 250 ML IVC PRN (07:51)
[2020-11-13] MEDS ORDERED: *HR* Heparin 10,000 UNIT/10 ML VIAL IV PRN (07:51)
[2020-11-13] MEDS: Insulin LISPRO 300 UNITS/3 ML VIAL SUBQ SCH ×4 (08:14→19:45)
[2020-11-13] MEDS: hydrALAZINE 25 MG TABLET PO SCH (08:47)
[2020-11-13] MEDS: hydrOXYzine pamoate 25 MG CAPSULE PO PRN (09:38)
[2020-11-13] MEDS: DilTIAZem CD (24hr) 180 MG CAP.ER.24H PO SCH (11:00)
[2020-11-13] MEDS: Aspirin Enteric Coated 81 MG Tablet PO SCH (11:45)
[2020-11-13] MEDS: Ondansetron ODT 4 MG TAB.RAPDIS SL PRN (11:51)
[2020-11-13] MEDS: Metoprolol XL (24 HR) Succ 50 MG TAB.ER.24H PO SCH ×2 (11:51→19:46)
[2020-11-13] MEDS: polyethylene glycoL 3350 17 GM POWD.PACK PO SCH (11:52)
[2020-11-13] MEDS ORDERED: Albuterol 2.5 MG/3 ML NEBULIZER IH PRN (12:16)
[2020-11-13] MEDS ORDERED: *HR* Warfarin 3 MG TABLET PO ONE (18:00)
[2020-11-13] MEDS: ALPRAZolam 0.25 MG TABLET PO PRN (21:51)
[2020-11-14] MEDS: hydrOXYzine pamoate 25 MG CAPSULE PO PRN (02:06)
[2020-11-14] MEDS: Melatonin 3 MG TABLET PO PRN (03:07)
[2020-11-14] MEDS: *HR* OxyCODONE Immed Rel 5 MG TABLET PO PRN (03:08)
[2020-11-14] MEDS: Ipratropium/Albuterol Neb 3 ML IH SCH ×2 (04:05→09:28)
[2020-11-14] MEDS: Heparin 25,000UNIT/250ML 1/2NS 25,000 UNIT/250 ML IV.SOLN IVC SCH ×2 (05:34→06:35)
[2020-11-14 05:37] LABS: Hematocrit 26.6 % (35.3-44.9); Hemoglobin 8.1 g/dL (11.5-15.4); Mean Corpuscular HGB Conc 30.5 g/dL (31.6-35.5); Mean Corpuscular Hemoglobin 31.6 pg (28.0-33.3); Mean Corpuscular Volume 103.9 fL (83.0-100.0); Mean Platelet Volume 10.2 fL (9.4-12.4); Platelet Count 129 K/mcL (140-400); Red Blood Count 2.56 M/mcL (3.82-4.97); Red Cell Distribution Width 17.2 % (11.5-14.5); White Blood Count 6.9 K/mcL (4.3-11.1)
[2020-11-14 05:45] LABS: Heparin anti-factor XA UFH 0.33 IU/mL (0.30-0.70); INR 1.9; Prothrombin Time 21.2 Seconds (9.4-12.1)
[2020-11-14 06:24] LABS: Calcium 8.5 mg/dL (8.6-10.3); Potassium 3.8 mEq/L (3.5-5.1)
[2020-11-14 07:09] VITALS: BP 100/62; PULSE 92; TEMP 98.2
[2020-11-14] MEDS: polyethylene glycoL 3350 17 GM POWD.PACK PO SCH (08:39)
[2020-11-14] MEDS: Aspirin Enteric Coated 81 MG Tablet PO SCH (08:44)
[2020-11-14] MEDS: DilTIAZem CD (24hr) 180 MG CAP.ER.24H PO SCH (08:44)
[2020-11-14] MEDS: Metoprolol XL (24 HR) Succ 50 MG TAB.ER.24H PO SCH (08:44)
[2020-11-14] MEDS: Insulin LISPRO 300 UNITS/3 ML VIAL SUBQ SCH (08:59)
[2020-11-14 14:36] VITALS: O2SAT 99
== END 2020-11-14 13:52 | disposition home health service (06) | DRG 291 ==
LOC: 2ANU → SUATTDRO 21:47
PROVIDERS: ADMIT Internal Medicine; ATTEND Family Medicine

== ENCOUNTER 2021-03-31 16:45 | Inpatient (IN) ==
[2021-03-31] MEDS ORDERED: Isovue-370 500 ML BOTTLE IVP ONE (20:18)
[2021-03-31 21:26] LABS: Hematocrit 37.2 % (35.3-44.9); Mean Corpuscular HGB Conc 32.3 g/dL (31.6-35.5); Mean Corpuscular Hemoglobin 33.8 pg (28.0-33.3); Mean Corpuscular Volume 104.8 fL (83.0-100.0); Mean Platelet Volume 10.1 fL (9.4-12.4); Platelet Count 193 K/mcL (140-400); Red Blood Count 3.55 M/mcL (3.82-4.97); Red Cell Distribution Width 13.3 % (11.5-14.5); White Blood Count 7.3 K/mcL (4.3-11.1)
[2021-03-31 21:33] LABS: Prothrombin Time 22.4 Seconds (9.4-12.1)
[2021-03-31 21:36] LABS: Activated Partial Thrombo Time 41.7 Seconds (26.0-36.0)
[2021-03-31 21:47] LABS: Calcium 9.4 mg/dL (8.6-10.3); Potassium 3.3 mEq/L (3.5-5.1)
[2021-03-31 21:49] LABS: Troponin I 0.03 ng/mL (< 0.04)
[2021-04-01 01:18] LABS: Influenza A PCR Negative (Negative); Influenza B PCR Negative (Negative); Resp. Syncytial Virus PCR Negative (Negative)
[2021-04-01] MEDS ORDERED: Naloxone 0.4 MG/ML INJ IVP PRN (01:19)
[2021-04-01] MEDS ORDERED: Melatonin 3 MG TABLET PO PRN (01:19)
[2021-04-01] MEDS ORDERED: Acetaminophen 325 MG TABLET PO PRN (01:19)
[2021-04-01 01:22] LABS: SARS-CoV-2 by PCR (In House) Negative (Negative)
[2021-04-01] MEDS ORDERED: Aspirin Enteric Coated 325 MG Tablet PO ONE (01:24)
[2021-04-01] MEDS ORDERED: D5% in Water 1,000 ML IVC PRN (01:26)
[2021-04-01] MEDS ORDERED: Dextrose Gel 15 GM/37.5 ML TUBE PO PRN ×2 (01:26)
[2021-04-01] MEDS ORDERED: Perflutren Lipid Microsphere 1.3 ML in 0.9 % Sodium Chloride 8.7 ML IVP PRN (01:36)
[2021-04-01 05:32] LABS: INR 1.9; Prothrombin Time 21.5 Seconds (9.4-12.1)
[2021-04-01 05:40] LABS: Estimated Average Glucose 111 mg/dl; Hemoglobin A1C 5.5 %
[2021-04-01 06:19] LABS: Albumin 3.7 g/dL (3.5-5.7); Albumin/Globulin Ratio 1.3 (1.1-2.2); Bilirubin,Total 0.6 mg/dL (0.3-1.0); Calcium 8.8 mg/dL (8.6-10.3); Chol/HDL Ratio 2.5 (0-4.9); Globulin 2.8 g/dL (2.4-3.5); Magnesium 1.8 mg/dL (1.6-2.6); Potassium 3.5 mEq/L (3.5-5.1); Total Protein 6.5 g/dL (6.4-8.9)
[2021-04-01] MEDS: Insulin LISPRO 300 UNITS/3 ML VIAL SUBQ SCH ×4 (08:31→20:51)
[2021-04-01] MEDS: Bumetanide 1 MG/4 ML VIAL IVP SCH ×2 (12:59→18:36)
[2021-04-01] MEDS ORDERED: Warfarin perPT PO PRN (18:00)
[2021-04-01] MEDS ORDERED: Warfarin 2.5 MG, Warfarin 2 MG PO ONE (18:00)
[2021-04-02 02:44] LABS: INR 1.7; Prothrombin Time 19.2 Seconds (9.4-12.1)
[2021-04-02 02:49] LABS: Calcium 9.1 mg/dL (8.6-10.3); Phosphorous 7.3 mg/dL (2.7-4.5); Potassium 3.8 mEq/L (3.5-5.1)
[2021-04-02] MEDS ORDERED: 0.9 % Sodium Chloride 250 ML IVC PRN (07:27)
[2021-04-02] MEDS: Insulin LISPRO 300 UNITS/3 ML VIAL SUBQ SCH ×4 (07:28→22:05)
[2021-04-02] MEDS ORDERED: 0.9 % Sodium Chloride 1,000 ML PRIME SCH (07:30)
[2021-04-02] MEDS: Bumetanide 1 MG/4 ML VIAL IVP SCH ×2 (07:40→16:04)
[2021-04-02] MEDS: DilTIAZem CD (24hr) 180 MG CAP.ER.24H PO SCH (07:40)
[2021-04-02] MEDS ORDERED: Metoprolol XL (24 HR) Succ 25 MG TAB.ER.24H PO SCH (09:00)
[2021-04-02] MEDS ORDERED: ALPRAZolam 0.25 MG TABLET PO PRN (10:51)
[2021-04-02 11:03] LABS: Basophils # 0.1 K/mcL (0.0-0.2); Basophils % 0.7 %; Eosinophils # 0.1 K/mcL (0.0-0.6); Eosinophils % 1.5 %; Hematocrit 39.1 % (35.3-44.9); Immature Granulocytes % 0.3 % (0-4); Lymphocytes # 0.9 K/mcL (0.6-4.6); Mean Corpuscular HGB Conc 30.7 g/dL (31.6-35.5); Mean Corpuscular Hemoglobin 33.3 pg (28.0-33.3); Mean Corpuscular Volume 108.6 fL (83.0-100.0); Mean Platelet Volume 10.4 fL (9.4-12.4); Monocytes # 0.8 K/mcL (0.0-1.3); Monocytes % 9.1 %; Neutrophils # 7.2 K/mcL (1.6-8.9); Platelet Count 174 K/mcL (140-400); Red Cell Distribution Width 13.5 % (11.5-14.5); Segmented Neutrophils % 78.4 %; White Blood Count 9.2 K/mcL (4.3-11.1)
[2021-04-02 11:46] LABS: Hepatitis B Surface Antibody < 3.10 mIU/mL
[2021-04-02 11:57] LABS: Hepatitis B Surface Antigen Nonreactive (Nonreactive)
[2021-04-02] MEDS: Calcium Acetate 667 MG CAPSULE PO SCH ×2 (12:10→16:50)
[2021-04-02] MEDS ORDERED: *HR* Warfarin 4 MG TABLET PO ONE (18:00)
[2021-04-02] MEDS: Metoprolol XL (24 HR) Succ 50 MG TAB.ER.24H PO SCH (22:02)
[2021-04-03 01:53] LABS: INR 1.9; Prothrombin Time 20.9 Seconds (9.4-12.1)
[2021-04-03 02:02] LABS: Calcium 9.1 mg/dL (8.6-10.3); Potassium 3.9 mEq/L (3.5-5.1)
[2021-04-03 02:13] LABS: Basophils % 0.4 %; Eosinophils # 0.1 K/mcL (0.0-0.6); Eosinophils % 0.5 %; Hematocrit 36.8 % (35.3-44.9); Hemoglobin 11.5 g/dL (11.5-15.4); Immature Granulocytes % 0.3 % (0-4); Lymphocytes # 0.8 K/mcL (0.6-4.6); Lymphocytes % 7.5 %; Mean Corpuscular HGB Conc 31.3 g/dL (31.6-35.5); Mean Corpuscular Hemoglobin 33.2 pg (28.0-33.3); Mean Corpuscular Volume 106.4 fL (83.0-100.0); Mean Platelet Volume 10.5 fL (9.4-12.4); Monocytes # 0.8 K/mcL (0.0-1.3); Monocytes % 7.9 %; Neutrophils # 8.5 K/mcL (1.6-8.9); Platelet Count 162 K/mcL (140-400); Red Blood Count 3.46 M/mcL (3.82-4.97); Red Cell Distribution Width 13.3 % (11.5-14.5); Segmented Neutrophils % 83.4 %; White Blood Count 10.2 K/mcL (4.3-11.1)
[2021-04-03] MEDS: Insulin LISPRO 300 UNITS/3 ML VIAL SUBQ SCH ×4 (07:09→20:17)
[2021-04-03] MEDS: DilTIAZem CD (24hr) 180 MG CAP.ER.24H PO SCH (09:21)
[2021-04-03] MEDS: Bumetanide 1 MG/4 ML VIAL IVP SCH ×2 (09:21→17:06)
[2021-04-03] MEDS: Calcium Acetate 667 MG CAPSULE PO SCH ×3 (09:21→17:06)
[2021-04-03] MEDS: Metoprolol XL (24 HR) Succ 50 MG TAB.ER.24H PO SCH ×2 (09:21→20:09)
[2021-04-03] MEDS: *HR* HYDROcodone/Acet 5/325 mg TABLET PO PRN (09:26)
[2021-04-03] MEDS ORDERED: Ondansetron ODT 4 MG TAB.RAPDIS SL PRN (11:50)
[2021-04-03] MEDS: *HR* OxyCODONE Immed Rel 5 MG TABLET PO SCH ×2 (15:15→20:08)
[2021-04-03] MEDS ORDERED: *HR* Warfarin 4 MG TABLET PO ONE (18:00)
[2021-04-04 02:42] LABS: Basophils # 0.1 K/mcL (0.0-0.2); Basophils % 0.8 %; Eosinophils # 0.3 K/mcL (0.0-0.6); Eosinophils % 3.8 %; Hematocrit 35.8 % (35.3-44.9); Hemoglobin 11.1 g/dL (11.5-15.4); Immature Granulocytes % 0.3 % (0-4); Lymphocytes # 1.7 K/mcL (0.6-4.6); Lymphocytes % 19.3 %; Mean Corpuscular Hemoglobin 33.9 pg (28.0-33.3); Mean Corpuscular Volume 109.5 fL (83.0-100.0); Mean Platelet Volume 10.4 fL (9.4-12.4); Monocytes % 11.8 %; Neutrophils # 5.5 K/mcL (1.6-8.9); Platelet Count 168 K/mcL (140-400); Red Blood Count 3.27 M/mcL (3.82-4.97); Red Cell Distribution Width 13.4 % (11.5-14.5); White Blood Count 8.6 K/mcL (4.3-11.1)
[2021-04-04 03:04] LABS: Calcium 9.2 mg/dL (8.6-10.3); Potassium 4.2 mEq/L (3.5-5.1)
[2021-04-04 06:12] LABS: INR 2.4; Prothrombin Time 26.2 Seconds (9.4-12.1)
[2021-04-04] MEDS ORDERED: 0.9 % Sodium Chloride 250 ML IVC PRN (07:32)
[2021-04-04] MEDS: Bumetanide 1 MG/4 ML VIAL IVP SCH (09:03)
[2021-04-04] MEDS: DilTIAZem CD (24hr) 180 MG CAP.ER.24H PO SCH (09:04)
[2021-04-04] MEDS: Calcium Acetate 667 MG CAPSULE PO SCH ×3 (09:04→16:48)
[2021-04-04] MEDS: Metoprolol XL (24 HR) Succ 50 MG TAB.ER.24H PO SCH (09:05)
[2021-04-04] MEDS: *HR* OxyCODONE Immed Rel 5 MG TABLET PO SCH ×2 (09:05→16:49)
[2021-04-04] MEDS: Insulin LISPRO 300 UNITS/3 ML VIAL SUBQ SCH ×3 (09:05→16:58)
[2021-04-04] MEDS: *HR* HYDROcodone/Acet 5/325 mg TABLET PO PRN (13:17)
[2021-04-04] MEDS ORDERED: *HR* Warfarin 2 MG TABLET PO ONE (18:00)
[2021-04-05] MEDS: Insulin LISPRO 300 UNITS/3 ML VIAL SUBQ SCH ×5 (01:33→19:59)
[2021-04-05] MEDS: *HR* OxyCODONE Immed Rel 5 MG TABLET PO SCH ×4 (01:42→20:00)
[2021-04-05] MEDS: Metoprolol XL (24 HR) Succ 50 MG TAB.ER.24H PO SCH ×3 (01:43→20:01)
[2021-04-05 01:51] LABS: INR 3.2
[2021-04-05] MEDS: DilTIAZem CD (24hr) 180 MG CAP.ER.24H PO SCH (09:41)
[2021-04-05] MEDS: Calcium Acetate 667 MG CAPSULE PO SCH ×3 (09:42→18:17)
[2021-04-05] MEDS: *HR* Dextrose 50 % in Water (Syg) 50 ML SYRINGE IVP PRN ×2 (23:25→23:46)
[2021-04-06] MEDS: DilTIAZem CD (24hr) 180 MG CAP.ER.24H PO SCH (10:33)
[2021-04-06] MEDS: *HR* OxyCODONE Immed Rel 5 MG TABLET PO SCH ×3 (10:34→20:56)
[2021-04-06] MEDS: Metoprolol XL (24 HR) Succ 50 MG TAB.ER.24H PO SCH ×2 (10:34→20:58)
[2021-04-06] MEDS: Calcium Acetate 667 MG CAPSULE PO SCH ×3 (11:46→16:48)
[2021-04-06 16:46] LABS: INR 2.4; Prothrombin Time 26.4 Seconds (9.4-12.1)
[2021-04-06 16:56] LABS: Calcium 9.6 mg/dL (8.6-10.3); Potassium 4.6 mEq/L (3.5-5.1)
[2021-04-06] MEDS ORDERED: *HR* Warfarin 3 MG TABLET PO ONE (18:00)
[2021-04-07 02:12] LABS: Hematocrit 36.5 % (35.3-44.9); Hemoglobin 10.9 g/dL (11.5-15.4); Mean Corpuscular HGB Conc 29.9 g/dL (31.6-35.5); Mean Corpuscular Hemoglobin 32.2 pg (28.0-33.3); Mean Platelet Volume 10.1 fL (9.4-12.4); Platelet Count 217 K/mcL (140-400); Red Blood Count 3.38 M/mcL (3.82-4.97); Red Cell Distribution Width 13.2 % (11.5-14.5); White Blood Count 8.6 K/mcL (4.3-11.1)
[2021-04-07 02:20] LABS: INR 2.6; Prothrombin Time 28.4 Seconds (9.4-12.1)
[2021-04-07 02:35] LABS: Calcium 9.4 mg/dL (8.6-10.3); Potassium 4.5 mEq/L (3.5-5.1)
[2021-04-07] MEDS ORDERED: 0.9 % Sodium Chloride 250 ML IVC PRN (07:42)
[2021-04-07] MEDS ORDERED: 0.9 % Sodium Chloride 1,000 ML PRIME SCH (07:45)
[2021-04-07] MEDS: Calcium Acetate 667 MG CAPSULE PO SCH ×3 (08:42→16:16)
[2021-04-07] MEDS: DilTIAZem CD (24hr) 180 MG CAP.ER.24H PO SCH (08:42)
[2021-04-07] MEDS: *HR* OxyCODONE Immed Rel 5 MG TABLET PO SCH ×3 (08:42→21:13)
[2021-04-07] MEDS: Metoprolol XL (24 HR) Succ 50 MG TAB.ER.24H PO SCH ×2 (12:08→21:14)
[2021-04-07] MEDS ORDERED: *HR* Warfarin 3 MG TABLET PO ONE (18:00)
[2021-04-08 01:51] LABS: Hemoglobin 10.1 g/dL (11.5-15.4); Mean Corpuscular HGB Conc 30.6 g/dL (31.6-35.5); Mean Corpuscular Hemoglobin 32.8 pg (28.0-33.3); Mean Corpuscular Volume 107.1 fL (83.0-100.0); Mean Platelet Volume 10.1 fL (9.4-12.4); Platelet Count 178 K/mcL (140-400); Red Blood Count 3.08 M/mcL (3.82-4.97); Red Cell Distribution Width 13.2 % (11.5-14.5); White Blood Count 8.7 K/mcL (4.3-11.1)
[2021-04-08 02:04] LABS: Calcium 9.2 mg/dL (8.6-10.3); Potassium 5.2 mEq/L (3.5-5.1)
[2021-04-08 02:05] LABS: INR 2.4; Prothrombin Time 26.3 Seconds (9.4-12.1)
[2021-04-08] MEDS: *HR* OxyCODONE Immed Rel 5 MG TABLET PO SCH ×3 (08:26→20:24)
[2021-04-08] MEDS: Metoprolol XL (24 HR) Succ 50 MG TAB.ER.24H PO SCH ×2 (08:27→20:24)
[2021-04-08] MEDS: DilTIAZem CD (24hr) 180 MG CAP.ER.24H PO SCH (08:27)
[2021-04-08] MEDS: Calcium Acetate 667 MG CAPSULE PO SCH ×3 (08:27→17:18)
[2021-04-08] MEDS ORDERED: Heparin 1,000 UNITS/500 mL 500 ML ONE (09:49)
[2021-04-08] MEDS ORDERED: Lidocaine/EPI 1:100k 1% 50 ML VIAL ONE (09:49)
[2021-04-08] MEDS ORDERED: 0.9 % Sodium Chloride 500 ML ONE ×2 (09:49→09:51)
[2021-04-08] MEDS ORDERED: 0.9 % Sodium Chloride 250 ML IVC PRN (10:17)
[2021-04-08] MEDS ORDERED: 0.9 % Sodium Chloride 1,000 ML PRIME SCH (10:30)
[2021-04-08] MEDS ORDERED: *HR* Warfarin 3 MG TABLET PO ONE (18:00)
[2021-04-08 19:08] LABS: Influenza A PCR Negative (Negative); Influenza B PCR Negative (Negative); Resp. Syncytial Virus PCR Negative (Negative)
[2021-04-08 19:22] LABS: SARS-CoV-2 by PCR (In House) Negative (Negative)
[2021-04-08 22:53] VITALS: BP 141/68; PULSE 79; TEMP 97.6; O2SAT 100
== END 2021-04-08 23:15 | disposition other institution (70) | DRG 64 ==
LOC: EMEROOARM 16:45 → 3BNU 16:45 → SUATTDRO 04-01 01:28 → OBSVTOIN 04-01 01:28 → 3BNU 04-01 02:33
PROVIDERS: ADMIT Internal Medicine; ATTEND Registered Nurse